=== PATIENT | female | born 1960 | race Caucasian/White ===

== ENCOUNTER 2021-07-23 23:06 | Inpatient (IN) | payer MEDICAID ==
[~2021-07-23] VITALS: Ht 160 cm; Wt 41.6 kg
[~2021-07-23 23:06] MED LIST: NOREPINEPHRINE BITARTRATE/D5W 8 MG/250mL bag IV ONE; adenosine 3mg/ml 2ml vial IV ONE; amiodarone 50MG/ML inj IV ONE; epiNEPHrine 0.1mg/ml 10ml syringe ONE; etomidate 2mg/ml inj. ONE
[2021-07-23] MEDS ORDERED: ringers solution, lactated 1000ml IV soln IV ONE (23:20)
[2021-07-24] VITALS (21 sets, daily range): BP systolic 89–153; BP diastolic 50–83
[2021-07-24 00:02] LABS: EOSINOPHILS % (AUTO) 0.2 % (0-6); LYMPHOCYTES # (AUTO) 0.6 X10'3 (1.1-4.8); MONOCYTES # (AUTO) 0.5 X10'3 (0-0.9); RED CELL DISTRIBUTION WIDTH 14.9 % (11.5-14.5)
[2021-07-24 00:04] LABS: BASOPHILS % (AUTO) 0.4 % (0-1); HEMATOCRIT 46.7 % (35.0-45.0); HEMOGLOBIN 15.5 g/dl (12.0-16.0); LYMPHOCYTES % (AUTO) 10.4 % (21-51); MEAN CORPUSCULAR HEMOGLOBIN 31.3 PG (27.0-31.0); MEAN CORPUSCULAR HGB CONC 33.1 g/dL (33.0-36.5); MEAN CORPUSCULAR VOLUME 94.4 FL (78-98); MEAN PLATELET VOLUME 7.7 FL (7.4-10.4); MONOCYTES % (AUTO) 8.9 % (2-12); NEUTROPHILS # (AUTO) 4.3 X10'3 (1.8-7.7); NEUTROPHILS % (AUTO) 80.1 % (42-75); PLATELET COUNT 241 X10'3 (140-440); RED BLOOD COUNT 4.94 X10'6 (4.20-5.60); WHITE BLOOD COUNT 5.4 X10'3 (4.5-11.0)
[2021-07-24 00:15] LABS: ALANINE AMINOTRANSFERASE 208 U/L (12-78); ALBUMIN 2.4 G/DL (3.4-5.0); ALBUMIN/GLOBULIN RATIO 0.5 (1.1-1.5); ALKALINE PHOSPHATASE 205 IU/L (46-116); ANION GAP 9 (8-16); ASPARTATE AMINO TRANSFERASE 261 U/L (10-37); BILIRUBIN,TOTAL 1.2 MG/DL (0.1-1.0); BLOOD UREA NITROGEN 23 MG/DL (7-18); BUN/CREATININE RATIO 25.6 (6.6-38.0); CALCIUM 8.2 MG/DL (8.5-10.1); CHLORIDE 100 MMOL/L (99-107); GLUCOSE 76 MG/DL (70-104); POTASSIUM 4.7 MMOL/L (3.5-5.1); SODIUM 138 MMOL/L (135-145); TOTAL CARBON DIOXIDE 28.8 MMOL/L (24-32); TOTAL PROTEIN 6.8 G/DL (6.4-8.2); eGFR 63 ML/MIN
[2021-07-24 00:21] LABS: LIPASE 84 U/L (73-393); MAGNESIUM 1.5 MG/DL (1.5-2.4)
[2021-07-24] MEDS ORDERED: CefTRIAXone 2gm/D5W 50ml BAG 50 ML IV ONE (01:00)
[2021-07-24 01:05] LABS: NUCLEATED RED BLOOD CELLS 2 /100WBC (0-0); TOTAL CELLS COUNTED 100
[2021-07-24 01:08] LABS: LARGE PLATELETS FEW; PLATELET ESTIMATE NORMAL; POIKILOCYTOSIS FEW; TEAR DROP CELLS FEW
[2021-07-24 01:09] LABS: ELLIPTOCYTES FEW
[2021-07-24] MEDS ORDERED: iohexol 300mg/ml 100ml inj. ONE (01:23)
[2021-07-24] MEDS ORDERED: morphine 2 MG/ML inj. syringe IV ONE (01:40)
[2021-07-24] MEDS ORDERED: ondansetron/PF 4mg/2ml inj IV ONE (01:40)
[2021-07-24] MEDS ORDERED: normal saline 1000ML IV soln IVB ONE (01:40)
[2021-07-24] MEDS ORDERED: rocuronium 10mg/ml inj IV ONE ×2 (01:55→05:17)
[2021-07-24] MEDS ORDERED: propofol 1000mg/100ml bottle 100 ML IV PRN (01:55)
[2021-07-24] MEDS ORDERED: etomidate 2mg/ml inj. IV ONE (01:55)
[2021-07-24] MEDS ORDERED: fentaNYL/PF 50MCG/1 ML 2ML syringe IV ONE ×2 (02:45→02:50)
[2021-07-24 02:59] LABS: ABG BASE EXCESS -4.2 mmol/L (-2.0-2.0); ABG HCO3 21.7 mmol/L (22.0-26.0); ABG OXYGEN SATURATION 99.8 % (94-97); ABG PCO2 (T) 42.7 mmHg (32.0-45.0); ABG PO2 (T) 448.7 mmHg (75.0-100.0); FCOHb 0.7 % (0.0-3.9); FMetHb 0.3 % (0.0-1.5); FO2Hb 98.8 % (94-97); PEEP 5 cm H2O; RESPIRATORY RATE 16 b/min; TIDAL VOLUME 350 mL
[2021-07-24] MEDS ORDERED: NOREPINEPHRINE BITARTRATE/D5W 250 ML IV PRN (03:30)
--- NOTE | 2021-07-24 03:30 | NUR ---
dr chery attempted to place thoravent, did not work and d/c. placed 24french chest tube.
--- NOTE | 2021-07-24 03:31 | NUR ---
placed petroleum gauze taped on 3 sides over prior thoravent attempt.
[2021-07-24] MEDS ORDERED: NORepinephrine 8mg/ 250ml NS 250 ML IV PRN (03:35)
[2021-07-24] MEDS ORDERED: ketamine 50 mg/ml 10ml vial ONE (03:45)
[2021-07-24] MEDS ORDERED: vancomycin/NS 1 GM ADD-VANTAGE 250 ML IV ONE (04:00)
[2021-07-24] MEDS ORDERED: FENTANYL CITRATE/D5W/PF 100 ML ONE (04:06)
[2021-07-24] MEDS ORDERED: FENTANYL CITRATE/D5W/PF 100 ML IV SCH (04:10)
[2021-07-24] MEDS ORDERED: epiNEPHrine inj 5 MG in normal saline 250ml IV soln 245 ML IV SCH (04:30)
[2021-07-24] MEDS ORDERED: albuterol 2.5 MG/3 ML nebule NEB PRN (04:35)
[2021-07-24] MEDS ORDERED: diltiazem 5mg/ml 5ml inj. IV ONE (04:56)
--- NOTE | 2021-07-24 04:59 | NUR ---
AT 0448 PT GIVEN 6 MG OF ADENOSINE. NO CHANGE AT 0454 PT GIVEN 12 MG OF ADENOSINE. NO CHANGE 0450 SYNCHRONIZED CARDIOVERSION WITH 150J. PT CARDIOVERTED TO SINUS RHYTHM.
--- NOTE | 2021-07-24 05:00 | NUR ---
PT GIVEN 150 OF AMIODARONE
--- NOTE | 2021-07-24 05:04 | NUR ---
0.[address] MOTT
[2021-07-24] MEDS ORDERED: ondansetron/PF 4mg/2ml inj IV PRN (05:10)
[2021-07-24] MEDS ORDERED: ringers solution, lacted 1,000 ML IV SCH (05:10)
[2021-07-24] MEDS ORDERED: fentaNYL/PF 50MCG/1 ML 2ML syringe ONE (05:16)
[2021-07-24] MEDS ORDERED: midazolam 1 mg/ML 2ml injection ONE (05:17)
[2021-07-24] MEDS ORDERED: sevoflurane 250ml liquid IH ONE (06:03)
--- NOTE | 2021-07-24 06:12 | NUR ---
charting limited to acuity of pt and staffing. er md at bedside giving verbal orders.
[2021-07-24] MEDS ORDERED: ketamine 10mg/ml 20ml inj vial IV ONE (06:15)
[2021-07-24] MEDS ORDERED: calcium chloride 100 MG/1 ML inj IV ONE (06:15)
[2021-07-24 06:35] LABS: URINE HCG NEGATIVE (NEG)
[2021-07-24 06:37] LABS: CLARITY,URINE SLIGHTLY CLOUDY (Clear); COLOR,URINE YELLOW (Yellow); GLUCOSE, URINE NEGATIVE (Neg); KETONES,URINE NEGATIVE (Neg); LEUKOCYTE ESTERASE ,URINE NEGATIVE (Neg); NITRITES, URINE NEGATIVE (Neg); OCCULT BLOOD,URINE NEGATIVE (Neg); PROTEIN,URINE TRACE mg/dl (Neg); UROBILINOGEN,URINE 0.2 E.U/dL (0.2-1.0)
[2021-07-24] MEDS ORDERED: dexamethasone sod phosphate 4mg/ml inj. ONE (06:37)
[2021-07-24 06:40] LABS: UA COLLECTION TYPE FOLEY CATH
[2021-07-24 06:47] LABS: BACTERIA,URINE FEW /HPF (Neg); MUCUS STRANDS NONE SEEN /LPF (Neg); RBC,URINE 0-2 /HPF (0-2); SQUAMOUS EPITHELIAL CELL,UR FEW /LPF (FEW); WBC CLUMPS,URINE FEW /HPF (NEGATIVE)
[2021-07-24 06:48] LABS: RENAL CELLS, URINE FEW /HPF
--- NOTE | 2021-07-24 07:00 | NUR ---
Received from OR via , accompanied by Anesthesiologist and report given by Anesthesiolgist. PATIENT HAS CHEST TUBE TO RIGHT UPPER CHEST WITH 60CC IN DRAIN TO 20CM OF SUCTION WITH NO LEAKS DETECTED, SHANAE TO RIGHT ABDOMEN APPROX 15CC IN BULB, RIGHT UPPER CHEST DRESSING, ABG DRAWN, RESTRAINTS ON BUE DUE TO ET TUBE VENT. ET AT 18CM GUM SEE RT NOTES, SEDATION BEING USED AND TITRATED FOR COMFORT DUE TO VENT. LEVOPHED TITRATED FOR B/P PER MD ORDERS. V/S STABLE. NO S/S OF PAIN. MOTTLED EXTREMITIES PULSE OX SHOWING 98% UN PALPABLE BLE, WILL TRY DOPPLER MD MINOR AWARE OF POOR EXTREMITY PERFUSION. F/C DRAINING CLEAR YELLOW URINE. ARTLINE TO RIGHT GROIN AND CL TO RIGHT GROIN, 22G RUE.
[2021-07-24 07:08] LABS: ABG BASE EXCESS -5.2 mmol/L (-2.0-2.0); ABG HCO3 17.8 mmol/L (22.0-26.0); ABG OXYGEN SATURATION 99.8 % (94-97); ABG PCO2 (T) 26.7 mmHg (32.0-45.0); ABG PO2 (T) 476.2 mmHg (75.0-100.0); FCOHb 0.3 % (0.0-3.9); FMetHb 0.5 % (0.0-1.5); PATIENT TEMPERATURE 36.2; PEEP 5 cm H2O; RESPIRATORY RATE 18 b/min; TIDAL VOLUME 350 mL; TOTAL HEMOGLOBIN 12.3 G/dl (12.0-16.0)
--- NOTE | 2021-07-24 08:10 | NUR ---
PATIENT HAS CHEST TUBE TO RIGHT UPPER CHEST WITH 60CC IN DRAIN TO 20CM OF SUCTION WITH NO LEAKS DETECTED, SHANAE TO RIGHT ABDOMEN APPROX 15CC IN BULB, RIGHT UPPER CHEST DRESSING, ABG DRAWN, RESTRAINTS ON BUE DUE TO ET TUBE VENT. ET AT 18CM GUM SEE RT NOTES, SEDATION BEING USED AND TITRATED FOR COMFORT DUE TO VENT. LEVOPHED TITRATED .2MCG/KG/MIN FOR B/P PER MD ORDERS. V/S STABLE. NO S/S OF PAIN. MOTTLED EXTREMITIES PULSE OX SHOWING 98% UNPALPABLE BLE, MILY AWARE OF POOR EXTREMITY PERFUSION, MOTTLED TO RLE BUT COLOR IMPROVING SLIGHTLY AND EVEN LESS MOTTLING TO LLE, STILL UNABLE TO GET DOPPLAR PULSE BLE MD MINOR. F/C DRAINING CLEAR YELLOW URINE. ARTLINE TO RIGHT GROIN AND CL TO RIGHT GROIN, 22G RUE. PATIENT PUPILS SLIGHTLY UNEQUAL WHICH PRIOR TO SURGERY DOCUMENTATION REVEALED THEY WERE EQUAL FOR ER REPORT. BUSINESS ANALYST CONSULTANT TO BE PAGED FOR THIS AND ADMIT ORDERS. ORDERS TO ADMIT AND TRANSFER FROM DR RICHARD UNTIL BUSINESS ANALYST CONSULTANT CAN EVALUATE. V/S STABLE HOOKED UP TO MONITORS IN ICU RM AND REPORT GIVEN TO BEST WORKER WHO HAS TAKEN OVER PATIENT CARE.
--- NOTE | 2021-07-24 09:00 | NUR ---
Patient to room 2045 from OR via [facility] with x2 RNs. Patient transferred to ICU bed with x4 RNs. Patient Vital sings stable at time of transfer. Levophed on at 0.2 mcg/kg/min, Versed at 3 mg/hr, and Fentanyl at 35 mcg/hr. Patient was noted to have right pupil size at 1 and left pupil size at 4 and unreactive to light. This appears to be a new finding. Md notified. Right foot without pulse, purple and cold, this is not a new finding.
--- NOTE | 2021-07-24 09:00 | NUR ---
Chest tube with air leak, this is consistent with OR report
[2021-07-24] MEDS: epiNEPHrine inj 5 MG in normal saline 250ml IV soln 245 ML IV SCH ×4 (10:15→20:15)
[2021-07-24] MEDS: pantoprazole IV 40 MG in dextrose 5%-water 100 ML IV SCH ×4 (11:00→21:37)
[2021-07-24] MEDS: enoxaparin 30mg/0.3ml syringe SQ SCH ×2 (11:36→20:38)
--- NOTE | 2021-07-24 11:48 | NUR ---
Initial: Pt intubated s/p ex lap for perforated gastric ulcer repair remains NPO at this time. OG in place w/ MAP 75 this AM. Pt notably small stature w/ visible muscle/fat wasting to temporal, clavicular, deltoid, triceps, and bilateral legs present during RD visit. Given above pt meets severe malnutrition criteria; notified. TF recs below in case prolonged intubation using IBW as pending scaled wt this admit. Will continue to monitor for nutrition support needs on vent. Rec: 1. IF TF; Vital AF at 50ml/hr goal would provide 1200ml volume/day, 1440 kcals, 972ml water, and 90g protein. 2. IF TF; additional water flush 100ml Q4H 3. IF TF; PALB Q /; daily wts 4. bowel care per rx post-op 5. upon extubation; advance diet per PLISSE MACHINE OPERATOR HELPER/ recs to regular Addendum: 07/24/21 at [address] Amended: Links added.
[2021-07-24] MEDS: piperacillin/tazo 3.375gm/50ml 50 ML IV SCH ×2 (12:02→16:15)
[2021-07-24] MEDS ORDERED: normal saline 1000ml 1,000 ML IVB ONE (15:10)
--- NOTE | 2021-07-24 15:56 | NUR ---
Patient's belongings were all placed in the bottom drawer of the cart in patient's room with a patient instrumentation chemist them. Belongings are as follows: Robe, jacket, flannel, tank top, pants, socks, underwear, sandles, small black pouch with small note in it, x2 pairs of glasses, x3 rings removed from patient and placed in a cup and lid with her name on it, cell phone, utility tech, purse with wallet, cards, keys and several papers.
[2021-07-24] MEDS: normal saline 1000ml 1,000 ML IV SCH ×3 (16:14→23:41)
--- NOTE | 2021-07-24 17:35 | NUR ---
Patient's boyfriend Allen and friend Lefty came to see the patient for a few minutes. They opted to take the black pouch, cell phone, and school year nanny but left the rest of the belongings. They also brought her a deck of cards and a black juliette pack with lotto scratchers in it. Addendum: 07/24/21 at 1832 by Alexandra Gauthier RN Discussed with patient's boyfriend the seriousness of patient's condition, his shrugged in response and said what happens, happens
--- NOTE | 2021-07-24 18:15 | NUR ---
Patient in room ICU 2045. I have received report from RAMO Morris and had the opportunity to ask questions and assume patient care. Patient is intubated and sedated with versed and fentanyl infusing to right femoral central line. Right chest tube to suction with large air leak present. This is not a new finding per report - MD is aware. Patient with J/P drain present. Patients extremities are purple and mottled - per report MD is aware. Pupils are unequal and non reactive Right pupil at 1mm, Left pupil at 3mm.
[2021-07-24] MEDS: FENTANYL-0.9 % NACL/PF 100 ML IV PRN (22:03)
[2021-07-25] VITALS (24 sets, daily range): BP systolic 87–125; BP diastolic 47–71
[2021-07-25] MEDS: piperacillin/tazo 3.375gm/50ml 50 ML IV SCH ×3 (00:35→17:00)
--- NOTE | 2021-07-25 00:45 | NUR ---
Admission Assessment completed with information from chart, unable to complete fully secondary to patient being intubated and sedated.
[2021-07-25] MEDS: epiNEPHrine inj 5 MG in normal saline 250ml IV soln 245 ML IV SCH ×2 (01:15→05:21)
--- NOTE | 2021-07-25 01:52 | NUR ---
Patient with weak gag/ cough with ET tube suction. Patient not following commands, does not respond to painful stimuli. Patient will intermittently furrow her brow with oral care and repositioning. Pupils maintain to be unequal and non reactive. Mottling to hands, feet and knees present.
[2021-07-25 03:01] LABS: BASOPHILS % (AUTO) 0.1 % (0-1); EOSINOPHILS % (AUTO) 0 % (0-6); HEMATOCRIT 32.4 % (35.0-45.0); HEMOGLOBIN 10.7 g/dl (12.0-16.0); LYMPHOCYTES # (AUTO) 0.6 X10'3 (1.1-4.8); LYMPHOCYTES % (AUTO) 6.1 % (21-51); MEAN CORPUSCULAR HEMOGLOBIN 30.9 PG (27.0-31.0); MEAN CORPUSCULAR HGB CONC 33.1 g/dL (33.0-36.5); MEAN CORPUSCULAR VOLUME 93.5 FL (78-98); MEAN PLATELET VOLUME 8.4 FL (7.4-10.4); MONOCYTES # (AUTO) 0.5 X10'3 (0-0.9); MONOCYTES % (AUTO) 4.6 % (2-12); NEUTROPHILS # (AUTO) 8.8 X10'3 (1.8-7.7); NEUTROPHILS % (AUTO) 89.2 % (42-75); PLATELET COUNT 98 X10'3 (140-440); RED BLOOD COUNT 3.46 X10'6 (4.20-5.60); RED CELL DISTRIBUTION WIDTH 14.8 % (11.5-14.5); WHITE BLOOD COUNT 9.8 X10'3 (4.5-11.0)
[2021-07-25 03:24] LABS: ALANINE AMINOTRANSFERASE 94 U/L (12-78); ALBUMIN 1.7 G/DL (3.4-5.0); ALBUMIN/GLOBULIN RATIO 0.7 (1.1-1.5); ALKALINE PHOSPHATASE 85 IU/L (46-116); ANION GAP 12 (8-16); ASPARTATE AMINO TRANSFERASE 116 U/L (10-37); BILIRUBIN,TOTAL 2.3 MG/DL (0.1-1.0); BLOOD UREA NITROGEN 34 MG/DL (7-18); BUN/CREATININE RATIO 26.2 (6.6-38.0); CALCIUM 7.2 MG/DL (8.5-10.1); CHLORIDE 108 MMOL/L (99-107); GLUCOSE 138 MG/DL (70-104); POTASSIUM 4.1 MMOL/L (3.5-5.1); SODIUM 138 MMOL/L (135-145); TOTAL CARBON DIOXIDE 17.9 MMOL/L (24-32); TOTAL PROTEIN 4.3 G/DL (6.4-8.2); TRIGLYCERIDES 46 MG/DL (20-135); eGFR 42 ML/MIN
[2021-07-25] MEDS: midazolam 100mg in NS 100ml 100 ML IV PRN (03:38)
[2021-07-25] MEDS: pantoprazole IV 40 MG in dextrose 5%-water 100 ML IV SCH ×5 (03:38→21:17)
[2021-07-25 03:46] LABS: ABG BASE EXCESS -5.6 mmol/L (-2.0-2.0); ABG HCO3 16.2 mmol/L (22.0-26.0); ABG OXYGEN SATURATION 99.5 % (94-97); ABG PCO2 (T) 21.2 mmHg (32.0-45.0); ABG PO2 (T) 237.8 mmHg (75.0-100.0); FCOHb 0.3 % (0.0-3.9); FMetHb 0.3 % (0.0-1.5); FO2Hb 98.9 % (94-97); PATIENT TEMPERATURE 36.1; PEEP 5 cm H2O; RESPIRATORY RATE 18 b/min; TIDAL VOLUME 350 mL
[2021-07-25] MEDS ORDERED: ringers solution, lacted 1,000 ML IV ONE (05:05)
[2021-07-25] MEDS ORDERED: calcium chloride inj. 2,000 MG in normal saline 100ml IV soln 100 ML IV SCH (05:05)
[2021-07-25] MEDS ORDERED: calcium chloride inj. 2,000 MG in normal saline 100ml IV soln 100 ML IV ONE (05:09)
--- NOTE | 2021-07-25 06:00 | NUR ---
Patient in room CICU 2014. I have received report from Gogo RALPH and had the opportunity to ask questions and assume patient care.
--- NOTE | 2021-07-25 06:09 | NUR ---
LATE ENTRY: 0330 PATENT MOVED TO ROOM 2015. Patient with decrease in blood Pressure and temp. Core temp placed. warm blankets applied to patient. Rounds with Dr. Davis addressed mottled skin, lack of pluses, scant urine output. AM labs reviewed, changes to platelets and hgb noted. Dr. Davis to place orders.
--- NOTE | 2021-07-25 06:43 | NUR ---
Problems reprioritized. Patient report given, questions answered & plan of care reviewed with RAMO Galarza.
--- NOTE | 2021-07-25 07:00 | NUR ---
Renu hugger applied to pt for low temperature, pts feet and hands are discolored purple, with prolonged capillary refill, posterior tibial pulses by doppler only on the right. pts tongue is very dry and ET tube appears to be at a different location than given in report. Will wait for chest x-ray. Moderate amount of subq air noted in right upper chest and neck. Right chest tube shows large air leak with minimum drainage output. Pt furrows brow when suctioned but no other response noted. mild cough noted pupils remain unequal, corneal reflex present.
[2021-07-25] MEDS ORDERED: UNABLE TO OBTAIN (11:20)
[2021-07-25] MEDS: enoxaparin 30mg/0.3ml syringe SQ SCH ×2 (11:56→22:13)
--- NOTE | 2021-07-25 13:56 | NUR ---
TPN consult: Pt remains intubated, to begin TPN per MD. Per scrap charger pt with a central line. TPN recommendations below have been d/w clinical pharmacist. Estimated nutrient needs were calculated using IBW as current documented wt isn't scaled. TPN recommendations will meet 100% minimum estimated energy needs at max appropriate dextrose load for intubation, although current documented wt isn't scaled so dext load may not be accurate. Will update recommendations as appropriate once a scaled weight is obtained. Noted pt with a low Tyrese of 11. SHANAE drain in place otherwise no edema or wounds per physical assessment. Will continue to follow and make recommendations as appropriate. Recommendations: 1. Continuous TPN per MD using 2:1 Climimix-E 12/27 with goal rate of 69 mL/hr with additional 250 mL 20% intralipids to run at 20.83 mL/hr for 12 hours on Tuesdays and Fridays. To provide 1656 mL total volume/day, 83 g AA, 248 g dext (5.06 mg/kg/min dext load, though current wt isn't scaled), and average 1318 kcal/day 2. Monitor for scaled weight and adjust recommendations as appropriate 3. Prealbumin and TG q Tuesday/ 4. Daily scaled weights 5. Transition to TF as medically indicated; IF TF, continuous Vital AF with 50 ml/hr goal to provide 1200 ml volume/day, 1440 kcal, 972 ml water, and 90 g protein. 6. IF TF; additional 100 mL water flush Q4H; monitor serum Na 7. Bowel care per rx post-op 8. Upon extubation, advance diet per ST/ recs to regular as medically indicated Addendum: 07/25/21 at [address] Amended: Links added.
[2021-07-25] MEDS ORDERED: atropine 0.1mg/ml 10ml syringe ONE (14:27)
[2021-07-25] MEDS ORDERED: Dextrose 10%-water IV solution 1,000 ML IV PRN (15:00)
[2021-07-25] MEDS: FENTANYL-0.9 % NACL/PF 100 ML IV PRN (16:59)
[2021-07-25] MEDS: normal saline 1000ml 1,000 ML IV SCH ×2 (17:00→23:10)
[2021-07-25] MEDS ORDERED: ZINC/COPPER/MANGANESE/SELENIUM 1 ML, chromic chloride inj. 10 MCG in AA 5%/D15W/ELECTRO... IV SCH (20:00)
--- NOTE | 2021-07-25 20:55 | NUR ---
Dr. Moser called for direction on Lovenox dose tonight. Patients Platelet count 98 Hemoglobin 10.7 after last nights Lovenox. MD will order redraw on CBC. Hold Lovenox until we have new labs values back.
[2021-07-25 21:35] LABS: BASOPHILS % (AUTO) 0.1 % (0-1); EOSINOPHILS % (AUTO) 0 % (0-6); HEMATOCRIT 28.9 % (35.0-45.0); HEMOGLOBIN 9.6 g/dl (12.0-16.0); LYMPHOCYTES # (AUTO) 0.6 X10'3 (1.1-4.8); LYMPHOCYTES % (AUTO) 3.8 % (21-51); MEAN CORPUSCULAR HEMOGLOBIN 30.8 PG (27.0-31.0); MEAN CORPUSCULAR HGB CONC 33.1 g/dL (33.0-36.5); MEAN CORPUSCULAR VOLUME 93.2 FL (78-98); MEAN PLATELET VOLUME 8.4 FL (7.4-10.4); MONOCYTES # (AUTO) 0.7 X10'3 (0-0.9); MONOCYTES % (AUTO) 4.5 % (2-12); NEUTROPHILS # (AUTO) 13.6 X10'3 (1.8-7.7); NEUTROPHILS % (AUTO) 91.6 % (42-75); PLATELET COUNT 122 X10'3 (140-440); RED CELL DISTRIBUTION WIDTH 15.6 % (11.5-14.5); WHITE BLOOD COUNT 14.9 X10'3 (4.5-11.0)
[2021-07-25 21:39] LABS: ALBUMIN 1.4 G/DL (3.4-5.0); ANION GAP 10 (8-16); BLOOD UREA NITROGEN 40 MG/DL (7-18); BUN/CREATININE RATIO 26.5 (6.6-38.0); CALCIUM 8.4 MG/DL (8.5-10.1); CHLORIDE 109 MMOL/L (99-107); CREATININE 1.51 MG/DL (0.40-0.90); GLUCOSE 136 MG/DL (70-104); MAGNESIUM 1.3 MG/DL (1.5-2.4); PHOSPHORUS 3.5 MG/DL (2.3-4.5); POTASSIUM 4.3 MMOL/L (3.5-5.1); PREALBUMIN 5.1 MG/DL (19-36); SODIUM 138 MMOL/L (135-145); TOTAL CARBON DIOXIDE 19.3 MMOL/L (24-32); eGFR 35 ML/MIN
--- NOTE | 2021-07-25 22:07 | NUR ---
Dr. Moser called with current lab results, Hgb 9.6 Hct 28.9 Plt 122, Per MD marte to give dose of Lovenox tonight.
[2021-07-26] VITALS (24 sets, daily range): BP systolic 90–129; BP diastolic 55–74
[2021-07-26] MEDS: piperacillin/tazo 3.375gm/50ml 50 ML IV SCH ×3 (00:20→15:32)
[2021-07-26] MEDS: pantoprazole IV 40 MG in dextrose 5%-water 100 ML IV SCH ×3 (01:58→19:46)
[2021-07-26] MEDS ORDERED: MESSAGE TO PHARMACY PO ONE (03:40)
[2021-07-26 03:44] LABS: ABG BASE EXCESS -6.4 mmol/L (-2.0-2.0); ABG HCO3 16.9 mmol/L (22.0-26.0); ABG OXYGEN SATURATION 97.9 % (94-97); ABG PCO2 (T) 25.8 mmHg (32.0-45.0); ABG PO2 (T) 116.7 mmHg (75.0-100.0); FCOHb 0.3 % (0.0-3.9); FMetHb 0.1 % (0.0-1.5); FO2Hb 97.5 % (94-97); PATIENT TEMPERATURE 36.3; PEEP 5 cm H2O; RESPIRATORY RATE 16 b/min; TIDAL VOLUME 350 mL; TOTAL HEMOGLOBIN 10.3 G/dl (12.0-16.0)
[2021-07-26] MEDS ORDERED: dextrose ORAL solution 15 GM/59 ML bottle PO PRN ×2 (03:50)
[2021-07-26] MEDS ORDERED: glucagon, human recombinant 1mg kit SUBCUT PRN (03:50)
[2021-07-26 03:51] LABS: BASOPHILS % (AUTO) 0 % (0-1); EOSINOPHILS % (AUTO) 0 % (0-6); HEMATOCRIT 28.2 % (35.0-45.0); HEMOGLOBIN 9.4 g/dl (12.0-16.0); LYMPHOCYTES # (AUTO) 0.6 X10'3 (1.1-4.8); MEAN CORPUSCULAR HGB CONC 33.3 g/dL (33.0-36.5); MEAN CORPUSCULAR VOLUME 93.3 FL (78-98); MEAN PLATELET VOLUME 8.6 FL (7.4-10.4); MONOCYTES # (AUTO) 0.6 X10'3 (0-0.9); MONOCYTES % (AUTO) 4.1 % (2-12); NEUTROPHILS # (AUTO) 12.9 X10'3 (1.8-7.7); NEUTROPHILS % (AUTO) 91.9 % (42-75); PLATELET COUNT 118 X10'3 (140-440); RED BLOOD COUNT 3.02 X10'6 (4.20-5.60); RED CELL DISTRIBUTION WIDTH 15.8 % (11.5-14.5); WHITE BLOOD COUNT 14.1 X10'3 (4.5-11.0)
[2021-07-26] MEDS: normal saline 1000ml 1,000 ML IV SCH ×3 (03:58→22:23)
[2021-07-26 04:12] LABS: ALANINE AMINOTRANSFERASE 76 U/L (12-78); ALBUMIN 1.3 G/DL (3.4-5.0); ALBUMIN/GLOBULIN RATIO 0.4 (1.1-1.5); ALKALINE PHOSPHATASE 65 IU/L (46-116); ANION GAP 12 (8-16); ASPARTATE AMINO TRANSFERASE 84 U/L (10-37); BILIRUBIN,TOTAL 1.7 MG/DL (0.1-1.0); BLOOD UREA NITROGEN 42 MG/DL (7-18); CALCIUM 7.7 MG/DL (8.5-10.1); CHLORIDE 109 MMOL/L (99-107); GLUCOSE 223 MG/DL (70-104); MAGNESIUM 1.3 MG/DL (1.5-2.4); PHOSPHORUS 3.6 MG/DL (2.3-4.5); POTASSIUM 4.1 MMOL/L (3.5-5.1); SODIUM 138 MMOL/L (135-145); TOTAL CARBON DIOXIDE 17.4 MMOL/L (24-32); TOTAL PROTEIN 4.2 G/DL (6.4-8.2); eGFR 35 ML/MIN
--- NOTE | 2021-07-26 05:00 | NUR ---
Bear hugger warming blanket place back on patient after bed bath, patient with decreased temp.
[2021-07-26] MEDS ORDERED: magnesium 2GM in 50ml NS 50 ML IV ONE (05:30)
--- NOTE | 2021-07-26 06:30 | NUR ---
Problems reprioritized. Patient report given, questions answered & plan of care reviewed with RAMO Ambriz.
[2021-07-26] MEDS: enoxaparin 30mg/0.3ml syringe SQ SCH ×2 (08:12→19:47)
[2021-07-26] MEDS: insulin regular, human U-100 3ml vial - multi-dose SQ SCH ×3 (09:16→20:12)
[2021-07-26 11:30] LABS: HEMOGLOBIN A1C 5.9 % (4.5-6.2)
--- NOTE | 2021-07-26 18:30 | NUR ---
Patient in room CICU 2014. I have received report from RAMO Ambriz and had the opportunity to ask questions and assume patient care.
[2021-07-26] MEDS: ZINC/COPPER/MANGANESE/SELENIUM 1 ML, chromic chloride inj. 10 MCG in AA 5%/D15W/ELECTRO... IV SCH (19:46)
[2021-07-26] MEDS: insulin glargine (Lantus) pen - multi-dose SQ SCH (20:13)
[2021-07-27] VITALS (24 sets, daily range): BP systolic 97–193; BP diastolic 53–90
[2021-07-27] MEDS: piperacillin/tazo 3.375gm/50ml 50 ML IV SCH ×3 (00:28→15:55)
--- NOTE | 2021-07-27 00:48 | NUR ---
Patient opens eyes but does not track, Patient moves lower extremities spontaneously. Patient does not follow commands to squeeze hands. Patient with increased heart rate and blood pressure to 210/ 120. Sedation and pain management medications increased and bolus administered per policy and order. Patient with decreased agitation with blood pressure returning within normal limits.
[2021-07-27] MEDS: insulin regular, human U-100 3ml vial - multi-dose SQ SCH ×4 (02:23→20:26)
[2021-07-27 02:59] LABS: BASOPHILS % (AUTO) 0.1 % (0-1); EOSINOPHILS % (AUTO) 0 % (0-6); MEAN CORPUSCULAR HEMOGLOBIN 30.7 PG (27.0-31.0); MEAN PLATELET VOLUME 8.6 FL (7.4-10.4); MONOCYTES # (AUTO) 0.7 X10'3 (0-0.9)
[2021-07-27 03:02] LABS: HEMATOCRIT 30.3 % (35.0-45.0); HEMOGLOBIN 9.8 g/dl (12.0-16.0); LYMPHOCYTES # (AUTO) 0.4 X10'3 (1.1-4.8); LYMPHOCYTES % (AUTO) 2.4 % (21-51); MEAN CORPUSCULAR HGB CONC 32.4 g/dL (33.0-36.5); MEAN CORPUSCULAR VOLUME 94.9 FL (78-98); MONOCYTES % (AUTO) 4.4 % (2-12); NEUTROPHILS # (AUTO) 14.7 X10'3 (1.8-7.7); NEUTROPHILS % (AUTO) 93.1 % (42-75); PLATELET COUNT 144 X10'3 (140-440); RED CELL DISTRIBUTION WIDTH 16.1 % (11.5-14.5); WHITE BLOOD COUNT 15.8 X10'3 (4.5-11.0)
[2021-07-27 03:06] LABS: ABG HCO3 13.8 mmol/L (22.0-26.0); ABG OXYGEN SATURATION 95.9 % (94-97); ABG PCO2 (T) 29.7 mmHg (32.0-45.0); ABG PO2 (T) 87.6 mmHg (75.0-100.0); FCOHb 0.3 % (0.0-3.9); FO2Hb 95.6 % (94-97); PATIENT TEMPERATURE 35.9; PEEP 5 cm H2O; RESPIRATORY RATE 16 b/min; TIDAL VOLUME 350 mL; TOTAL HEMOGLOBIN 10.1 G/dl (12.0-16.0)
[2021-07-27 03:50] LABS: ALANINE AMINOTRANSFERASE 76 U/L (12-78); ALBUMIN 1.3 G/DL (3.4-5.0); ALBUMIN/GLOBULIN RATIO 0.4 (1.1-1.5); ALKALINE PHOSPHATASE 62 IU/L (46-116); ANION GAP 11 (8-16); ASPARTATE AMINO TRANSFERASE 77 U/L (10-37); BILIRUBIN,TOTAL 1.3 MG/DL (0.1-1.0); BLOOD UREA NITROGEN 49 MG/DL (7-18); BUN/CREATININE RATIO 35.3 (6.6-38.0); CALCIUM 7.4 MG/DL (8.5-10.1); CHLORIDE 109 MMOL/L (99-107); CREATININE 1.39 MG/DL (0.40-0.90); GLUCOSE 260 MG/DL (70-104); MAGNESIUM 1.9 MG/DL (1.5-2.4); PHOSPHORUS 3.3 MG/DL (2.3-4.5); POTASSIUM 3.9 MMOL/L (3.5-5.1); PREALBUMIN 6.6 MG/DL (19-36); SODIUM 136 MMOL/L (135-145); TOTAL CARBON DIOXIDE 16.4 MMOL/L (24-32); TOTAL PROTEIN 4.5 G/DL (6.4-8.2); eGFR 38 ML/MIN
--- NOTE | 2021-07-27 06:24 | NUR ---
Problems reprioritized. Patient report given, questions answered & plan of care reviewed with RAMO Ambriz.
[2021-07-27] MEDS: sodium bicarbonate (8.4%) inj. 150 MEQ in dextrose 5%-water 1,000 ML IV SCH (07:36)
[2021-07-27] MEDS: enoxaparin 40mg/0.4ml syringe SQ SCH ×2 (07:37→20:10)
[2021-07-27] MEDS: pantoprazole IV 40 MG in dextrose 5%-water 100 ML IV SCH ×2 (07:37→20:08)
[2021-07-27] MEDS: folic acid 1mg/0.2ml inj IV SCH (12:55)
[2021-07-27] MEDS: thiamine inj. 100 MG in normal saline 100ml IV soln 100 ML IV SCH (12:55)
--- NOTE | 2021-07-27 18:20 | NUR ---
Patient in room CICU 2014. I have received report from RAMO Ambriz and had the opportunity to ask questions and assume patient care. Patient with increased/ large amount of subcutaneous emphysema to right anterior chest extending down right arm, up to right clavicle and across to left chest. Patient with chest tube in place to suction with positive air leak, not a new finding. SpO2 94% rate 16 A/C PRVC on ventilator with FiO2 30%, PEEP of 5. Lung sounds clear and diminished to right lung, left lung is clear. Chest x-ray is pending. Patient intermittently opens eyes to verbal and patient care activities, patient is not following commands. Patient does not track with eyes.
--- NOTE | 2021-07-27 19:21 | NUR ---
Dr. Garces called with results of chest x-ray and to update on patients condition. Patient with increased subcutaneous emphysema to right anterior chest, extending across to the left and down right arm. Ventilator settings reviewed. MD order to increase suction on chest tube atrium to [id number].
[2021-07-27] MEDS: ZINC/COPPER/MANGANESE/SELENIUM 1 ML, chromic chloride inj. 10 MCG in AA 5%/D15W/ELECTRO... IV SCH (20:09)
[2021-07-27] MEDS: lactobacillus rhamnosus 10,000 MMU CELLS/CAPSULE PO SCH (20:09)
[2021-07-27] MEDS: insulin glargine (Lantus) pen - multi-dose SQ SCH (20:27)
[2021-07-28] VITALS (23 sets, daily range): BP systolic 82–153; BP diastolic 44–76
[2021-07-28] MEDS: piperacillin/tazo 3.375gm/50ml 50 ML IV SCH ×3 (00:15→15:43)
[2021-07-28] MEDS: FENTANYL-0.9 % NACL/PF 100 ML IV PRN (00:33)
[2021-07-28] MEDS: mineral oil/petrolatum ophthal oint EACHEYE SCH ×4 (02:23→20:00)
[2021-07-28] MEDS: insulin regular, human U-100 3ml vial - multi-dose SQ SCH ×2 (02:43→20:44)
[2021-07-28] MEDS: sodium bicarbonate (8.4%) inj. 150 MEQ in dextrose 5%-water 1,000 ML IV SCH (02:50)
[2021-07-28 03:10] LABS: BASOPHILS # (AUTO) 0.1 X10'3 (0-0.2); BASOPHILS % (AUTO) 0.4 % (0-1); EOSINOPHILS % (AUTO) 0.1 % (0-6); HEMATOCRIT 29.9 % (35.0-45.0); HEMOGLOBIN 9.7 g/dl (12.0-16.0); LYMPHOCYTES # (AUTO) 0.3 X10'3 (1.1-4.8); LYMPHOCYTES % (AUTO) 2.3 % (21-51); MEAN CORPUSCULAR HEMOGLOBIN 30.4 PG (27.0-31.0); MEAN CORPUSCULAR HGB CONC 32.6 g/dL (33.0-36.5); MEAN CORPUSCULAR VOLUME 93.5 FL (78-98); MEAN PLATELET VOLUME 8.6 FL (7.4-10.4); MONOCYTES # (AUTO) 0.8 X10'3 (0-0.9); MONOCYTES % (AUTO) 7.2 % (2-12); NEUTROPHILS # (AUTO) 10.5 X10'3 (1.8-7.7); PLATELET COUNT 136 X10'3 (140-440); RED BLOOD COUNT 3.19 X10'6 (4.20-5.60); RED CELL DISTRIBUTION WIDTH 15.7 % (11.5-14.5); WHITE BLOOD COUNT 11.7 X10'3 (4.5-11.0)
[2021-07-28 03:36] LABS: ABG BASE EXCESS -3.2 mmol/L (-2.0-2.0); ABG HCO3 21.8 mmol/L (22.0-26.0); ABG OXYGEN SATURATION 96.3 % (94-97); ABG PCO2 (T) 39.2 mmHg (32.0-45.0); ABG PO2 (T) 87.3 mmHg (75.0-100.0); FCOHb 0.3 % (0.0-3.9); FMetHb 0.1 % (0.0-1.5); FO2Hb 95.9 % (94-97); PATIENT TEMPERATURE 37.1; PEEP 5 cm H2O; RESPIRATORY RATE 16 b/min; TIDAL VOLUME 350 mL; TOTAL HEMOGLOBIN 10.8 G/dl (12.0-16.0)
[2021-07-28 03:39] LABS: ALANINE AMINOTRANSFERASE 67 U/L (12-78); ALBUMIN 1.1 G/DL (3.4-5.0); ALBUMIN/GLOBULIN RATIO 0.3 (1.1-1.5); ALKALINE PHOSPHATASE 68 IU/L (46-116); ANION GAP 7 (8-16); ASPARTATE AMINO TRANSFERASE 81 U/L (10-37); BILIRUBIN,TOTAL 1.1 MG/DL (0.1-1.0); BLOOD UREA NITROGEN 49 MG/DL (7-18); BUN/CREATININE RATIO 44.5 (6.6-38.0); CALCIUM 7.3 MG/DL (8.5-10.1); CHLORIDE 106 MMOL/L (99-107); GLUCOSE 129 MG/DL (70-104); MAGNESIUM 1.7 MG/DL (1.5-2.4); PHOSPHORUS 2.3 MG/DL (2.3-4.5); SODIUM 137 MMOL/L (135-145); TOTAL CARBON DIOXIDE 23.9 MMOL/L (24-32); TOTAL PROTEIN 4.4 G/DL (6.4-8.2); eGFR 50 ML/MIN
[2021-07-28 03:43] LABS: POTASSIUM 2.9 MMOL/L (3.5-5.1)
[2021-07-28] MEDS: potassium Cl 20 mEq/100mL bag IV SCH ×3 (04:31→06:30)
--- NOTE | 2021-07-28 06:11 | NUR ---
Problems reprioritized. Patient report given, questions answered & plan of care reviewed with RAMO Ambriz.
[2021-07-28] MEDS: thiamine inj. 100 MG in normal saline 100ml IV soln 100 ML IV SCH (07:50)
[2021-07-28] MEDS: pantoprazole IV 40 MG in dextrose 5%-water 100 ML IV SCH ×2 (07:50→20:35)
[2021-07-28] MEDS: lactobacillus rhamnosus 10,000 MMU CELLS/CAPSULE PO SCH (07:50)
[2021-07-28] MEDS: enoxaparin 40mg/0.4ml syringe SQ SCH ×2 (07:51→20:34)
[2021-07-28] MEDS: folic acid 1mg/0.2ml inj IV SCH (07:51)
[2021-07-28] MEDS ORDERED: MVI, adult No.4 with vit. K 10 ML in dextrose 5% water 500ml 500 ML IV SCH ×2 (10:00)
[2021-07-28] MEDS: furosemide 40mg/4ml inj IV SCH ×2 (10:31→20:34)
[2021-07-28] MEDS ORDERED: magnesium Cl slow-release 64mg tablet PO PRN (12:05)
[2021-07-28] MEDS ORDERED: magnesium 4gm in 100ml NS 100 ML IV PRN (12:05)
[2021-07-28] MEDS ORDERED: potassium Cl 20 mEq SR tablet PO PRN ×2 (12:05)
[2021-07-28] MEDS ORDERED: magnesium 2GM in 50ml NS 50 ML IV PRN (12:05)
--- NOTE | 2021-07-28 13:07 | NUR ---
TF consult: Pt remains intubated, to begin TF and wean TPN per MD, see recommendations below. A scaled weight was obtained and pt with an appropriate BMI though will continue to use IBW for estimated nutrient needs in view of malnutrition. Confirmed with RN that pt currently not receiving Propofol. Per MD note pt's family reported that pt is a heavy alcoholic, pt started on routine Thiamine, Folic acid, and MVI. LBM 12/ and not receiving routine bowel care, though no nutrition admin enterally since admit and pt s/p exploratory laparotomy with repair of perforated gastric ulcer. Hopeful that pt will have a BM following transitioning nutrition to EN from PN. Will continue to follow closely and make recommendations as appropriate. Recommendations: 1. Continuous TF via OGT using Vital AF with 50 mL/hr goal rate to provide 1200 mL total volume/day, 1440 kcal, 90 g protein, and 973 mL water 2. Additional 75 mL water flush Q4H; monitor serum Na and need to adjust 3. As TF increases wean continuous TPN using 2:1 Climimix-E 12/27 with goal rate of 69 mL/hr with additional 250 mL 20% intralipids to run at 20.83 mL/hr for 12 hours on Tuesdays and Fridays. To provide 1656 mL total volume/day, 83 g AA, 248 g dext (5.06 mg/kg/min dext load, though current wt isn't scaled), and average 1318 kcal/day 4. Prealbumin q Tuesday/ 5. Daily scaled weights 6. Continue routine Thiamine, Folic acid, and MVI for EtOH hx 7. Bowel care per rx post-op 8. Upon extubation, advance diet per ST/ recs to regular as medically indicated Addendum: 07/28/21 at [address] Amended: Links added.
[2021-07-28] MEDS: nicotine 14mg patch - 24hr TD SCH (13:42)
[2021-07-28] MEDS ORDERED: dextrose ORAL solution 15 GM/59 ML bottle OGT PRN ×2 (14:08)
[2021-07-28] MEDS ORDERED: potassium Cl 20 mEq SR tablet OGT PRN ×2 (14:10)
[2021-07-28] MEDS: potassium Cl 20mEq/100mL bag 100 ML IV PRN ×2 (14:35→22:51)
--- NOTE | 2021-07-28 16:20 | NUR ---
Pt. not started on tube feeding because a pump is not available.
[2021-07-28] MEDS ORDERED: furosemide 40mg/4ml inj IV SCH (20:00)
--- NOTE | 2021-07-28 20:10 | NUR ---
Fingerstick capillary glucose 68, pt's has history of PVD, extremities cold and purplish. No s/sx of hypoglycemia noted, pt is on continuous TPN. Arterial sample obtained for blood glucose, result 131, will treat this value instead.
[2021-07-28] MEDS: ZINC/COPPER/MANGANESE/SELENIUM 1 ML, chromic chloride inj. 10 MCG in AA 5%/D15W/ELECTRO... IV SCH (20:35)
[2021-07-28] MEDS: lactobacillus rhamnosus 10,000 MMU CELLS/CAPSULE OGT SCH (20:35)
[2021-07-28] MEDS: insulin glargine (Lantus) pen - multi-dose SQ SCH (20:45)
[2021-07-28 22:11] LABS: POTASSIUM 2.8 MMOL/L (3.5-5.1)
[2021-07-28] MEDS: diltiazem-NS 100mg/100ml 100 ML IV SCH (22:39)
[2021-07-28 22:54] LABS: MAGNESIUM 1.5 MG/DL (1.5-2.4)
--- NOTE | 2021-07-28 23:00 | NUR ---
2134 - Rhythm change from Sinus rhythm to Afib noted, heart rate 120s-130s. 2149 - EKG done, rhythm confirmed to be Afib. 2199 - Dr Richards made aware of rhythm change via phone, orders received to start Cardizem gtt. Awaiting for Rx to compound at this time. 2219 - Critical K level @ 2.[address] Richards, K replacement orders to 4 received/
[2021-07-28] MEDS: magnesium 2GM in 50ml NS 50 ML IV PRN (23:30)
[2021-07-29] VITALS (26 sets, daily range): BP systolic 85–181; BP diastolic 47–75
[2021-07-29] MEDS: piperacillin/tazo 3.375gm/50ml 50 ML IV SCH ×3 (00:01→15:23)
[2021-07-29] MEDS: potassium Cl 20mEq/100mL bag 100 ML IV PRN ×5 (00:03→13:08)
[2021-07-29] MEDS: mineral oil/petrolatum ophthal oint EACHEYE SCH ×4 (02:04→20:23)
[2021-07-29] MEDS: insulin regular, human U-100 3ml vial - multi-dose SQ SCH (02:37)
[2021-07-29 03:33] LABS: ABG HCO3 25.7 mmol/L (22.0-26.0); ABG OXYGEN SATURATION 97.5 % (94-97); ABG PCO2 (T) 37.6 mmHg (32.0-45.0); ABG PO2 (T) 101.2 mmHg (75.0-100.0); FCOHb 0.2 % (0.0-3.9); FMetHb 0.1 % (0.0-1.5); FO2Hb 97.2 % (94-97); PATIENT TEMPERATURE 37.6; PEEP 5 cm H2O; RESPIRATORY RATE 16 b/min; TIDAL VOLUME 350 mL
[2021-07-29 04:42] LABS: EOSINOPHILS # (AUTO) 0.2 X10'3 (0-0.9)
[2021-07-29 04:43] LABS: BASOPHILS % (AUTO) 0.1 % (0-1); EOSINOPHILS % (AUTO) 1.2 % (0-6); HEMATOCRIT 29.4 % (35.0-45.0); HEMOGLOBIN 9.9 g/dl (12.0-16.0); LYMPHOCYTES # (AUTO) 0.3 X10'3 (1.1-4.8); LYMPHOCYTES % (AUTO) 2.3 % (21-51); MEAN CORPUSCULAR HEMOGLOBIN 30.9 PG (27.0-31.0); MEAN CORPUSCULAR HGB CONC 33.6 g/dL (33.0-36.5); MEAN PLATELET VOLUME 8.7 FL (7.4-10.4); MONOCYTES % (AUTO) 0.3 % (2-12); NEUTROPHILS # (AUTO) 13.3 X10'3 (1.8-7.7); NEUTROPHILS % (AUTO) 96.1 % (42-75); PLATELET COUNT 181 X10'3 (140-440); RED CELL DISTRIBUTION WIDTH 15.5 % (11.5-14.5); WHITE BLOOD COUNT 13.9 X10'3 (4.5-11.0)
[2021-07-29 04:53] LABS: ALANINE AMINOTRANSFERASE 61 U/L (12-78); ALBUMIN/GLOBULIN RATIO 0.3 (1.1-1.5); ALKALINE PHOSPHATASE 77 IU/L (46-116); ANION GAP 8 (8-16); ASPARTATE AMINO TRANSFERASE 83 U/L (10-37); BILIRUBIN,TOTAL 1.5 MG/DL (0.1-1.0); BLOOD UREA NITROGEN 53 MG/DL (7-18); BUN/CREATININE RATIO 48.2 (6.6-38.0); CALCIUM 7.4 MG/DL (8.5-10.1); CHLORIDE 101 MMOL/L (99-107); GLUCOSE 93 MG/DL (70-104); MAGNESIUM 2.1 MG/DL (1.5-2.4); PHOSPHORUS 2.4 MG/DL (2.3-4.5); POTASSIUM 4.4 MMOL/L (3.5-5.1); SODIUM 135 MMOL/L (135-145); TOTAL CARBON DIOXIDE 25.7 MMOL/L (24-32); TOTAL PROTEIN 4.5 G/DL (6.4-8.2); eGFR 50 ML/MIN
[2021-07-29] MEDS ORDERED: LIDOcaine 1% 30ml preserv. free vial IJ STA (07:57)
[2021-07-29] MEDS ORDERED: multi-vitamin w/minerals & ferrous gluconate 9 MG/15 ML oral LIQUID OGT SCH (08:00)
[2021-07-29] MEDS: K and/or MAG REPLACEMENT MC SCH (08:00)
[2021-07-29 08:14] LABS: NUCLEATED RED BLOOD CELLS 6 /100WBC (0-0); TOTAL CELLS COUNTED 100
[2021-07-29 08:15] LABS: ANISOCYTOSIS 1+; LARGE PLATELETS FEW; PLATELET ESTIMATE NORMAL; POLYCHROMASIA 1+; SCHISTOCYTES FEW
[2021-07-29] MEDS: furosemide 40mg/4ml inj IV SCH ×2 (08:27→20:23)
[2021-07-29] MEDS: thiamine inj. 100 MG in normal saline 100ml IV soln 100 ML IV SCH (08:27)
[2021-07-29] MEDS: lactobacillus rhamnosus 10,000 MMU CELLS/CAPSULE OGT SCH ×2 (08:27→20:25)
[2021-07-29] MEDS: pantoprazole IV 40 MG in dextrose 5%-water 100 ML IV SCH ×2 (08:27→20:23)
[2021-07-29] MEDS: nicotine 14mg patch - 24hr TD SCH (08:28)
[2021-07-29 11:53] LABS: POTASSIUM 3.2 MMOL/L (3.5-5.1)
[2021-07-29] MEDS: FENTANYL-0.9 % NACL/PF 100 ML IV PRN (13:53)
[2021-07-29 14:40] LABS: MAGNESIUM 1.9 MG/DL (1.5-2.4); POTASSIUM 4.6 MMOL/L (3.5-5.1)
[2021-07-29] MEDS: folic acid 1mg/0.2ml inj IV SCH (15:12)
[2021-07-29] MEDS: enoxaparin 40mg/0.4ml syringe SQ SCH ×2 (15:12→20:23)
[2021-07-29] MEDS: magnesium 2GM in 50ml NS 50 ML IV PRN (15:23)
--- NOTE | 2021-07-29 16:05 | NUR ---
TF started @1600. TPN rate reduced to 34.5 mLs/hr.
[2021-07-29] MEDS: diltiazem-NS 100mg/100ml 100 ML IV SCH (18:15)
[2021-07-29] MEDS: dextrose 50%-water 50ml dispensing syringe IV PRN (20:15)
[2021-07-29] MEDS: ZINC/COPPER/MANGANESE/SELENIUM 1 ML, chromic chloride inj. 10 MCG in AA 5%/D15W/ELECTRO... IV SCH (20:23)
--- NOTE | 2021-07-29 20:40 | NUR ---
Blood glucose 64, Dextrose 50% IV 25ml given per protocol with improvement of blood sugar to 159. Insulin coverage and Lanlizzieus held. Addendum: 07/30/21 at 0053 by Du Austin RN Amended: Links added.
[2021-07-29] MEDS: insulin glargine (Lantus) pen - multi-dose SQ SCH (21:00)
--- NOTE | 2021-07-29 21:25 | NUR ---
Rhythm change from sinus rhythm to Afib noted, HR to the 120s. Cardizem gtt was turned off during dayshift, Dr Richards made aware, ordered to restart Cardizem gtt per protocol. Hypoglycemic episode also reported, orders obtained to hold Lantus dose tonight, increase tube feeding rate to 30ml/hr and keep TPN rate at same rate until blood sugar wnl.
[2021-07-30] VITALS (23 sets, daily range): BP systolic 96–170; BP diastolic 35–70
[2021-07-30] MEDS: piperacillin/tazo 3.375gm/50ml 50 ML IV SCH ×3 (00:18→16:38)
[2021-07-30] MEDS: diltiazem-NS 100mg/100ml 100 ML IV SCH (00:18)
[2021-07-30] MEDS: mineral oil/petrolatum ophthal oint EACHEYE SCH ×4 (02:06→20:30)
[2021-07-30] MEDS: insulin regular, human U-100 3ml vial - multi-dose SQ SCH (02:31)
[2021-07-30 03:13] LABS: BASOPHILS % (AUTO) 0.2 % (0-1); EOSINOPHILS # (AUTO) 0.1 X10'3 (0-0.9); HEMATOCRIT 28.1 % (35.0-45.0); HEMOGLOBIN 9.2 g/dl (12.0-16.0); LYMPHOCYTES # (AUTO) 0.3 X10'3 (1.1-4.8); NEUTROPHILS # (AUTO) 10.1 X10'3 (1.8-7.7); WHITE BLOOD COUNT 11.2 X10'3 (4.5-11.0)
[2021-07-30 03:16] LABS: EOSINOPHILS % (AUTO) 0.9 % (0-6); LYMPHOCYTES % (AUTO) 2.7 % (21-51); MEAN CORPUSCULAR HEMOGLOBIN 29.9 PG (27.0-31.0); MEAN CORPUSCULAR HGB CONC 32.8 g/dL (33.0-36.5); MEAN CORPUSCULAR VOLUME 91.2 FL (78-98); MEAN PLATELET VOLUME 9.1 FL (7.4-10.4); MONOCYTES # (AUTO) 0.8 X10'3 (0-0.9); MONOCYTES % (AUTO) 6.8 % (2-12); NEUTROPHILS % (AUTO) 89.4 % (42-75); PLATELET COUNT 234 X10'3 (140-440); RED BLOOD COUNT 3.09 X10'6 (4.20-5.60); RED CELL DISTRIBUTION WIDTH 15.3 % (11.5-14.5)
[2021-07-30 03:39] LABS: ALANINE AMINOTRANSFERASE 57 U/L (12-78); ALBUMIN/GLOBULIN RATIO 0.3 (1.1-1.5); ALKALINE PHOSPHATASE 87 IU/L (46-116); ANION GAP 8 (8-16); ASPARTATE AMINO TRANSFERASE 85 U/L (10-37); BILIRUBIN,TOTAL 1.8 MG/DL (0.1-1.0); BLOOD UREA NITROGEN 57 MG/DL (7-18); BUN/CREATININE RATIO 51.4 (6.6-38.0); CALCIUM 7.2 MG/DL (8.5-10.1); CHLORIDE 96 MMOL/L (99-107); CREATININE 1.11 MG/DL (0.40-0.90); GLUCOSE 108 MG/DL (70-104); MAGNESIUM 2.3 MG/DL (1.5-2.4); PHOSPHORUS 2.8 MG/DL (2.3-4.5); PREALBUMIN 6.7 MG/DL (19-36); SODIUM 136 MMOL/L (135-145); TOTAL CARBON DIOXIDE 31.7 MMOL/L (24-32); TOTAL PROTEIN 4.7 G/DL (6.4-8.2); eGFR 50 ML/MIN
[2021-07-30 03:46] LABS: POTASSIUM 2.7 MMOL/L (3.5-5.1)
[2021-07-30] MEDS: potassium Cl 20mEq/100mL bag 100 ML IV PRN ×4 (03:52→11:30)
[2021-07-30 04:18] LABS: TOTAL CELLS COUNTED 100
[2021-07-30 04:20] LABS: ANISOCYTOSIS 1+; PLATELET ESTIMATE NORMAL
[2021-07-30 04:21] LABS: LARGE PLATELETS FEW; POLYCHROMASIA FEW; SCHISTOCYTES FEW
[2021-07-30] MEDS: FENTANYL-0.9 % NACL/PF 100 ML IV PRN ×2 (05:33→05:41)
[2021-07-30] MEDS: furosemide 40mg/4ml inj IV SCH (08:00)
[2021-07-30] MEDS: K and/or MAG REPLACEMENT MC SCH (08:00)
[2021-07-30] MEDS: dextrose 50%-water 50ml dispensing syringe IV PRN ×2 (08:50→11:27)
[2021-07-30] MEDS: pantoprazole IV 40 MG in dextrose 5%-water 100 ML IV SCH ×2 (09:29→20:30)
[2021-07-30] MEDS: enoxaparin 40mg/0.4ml syringe SQ SCH ×2 (09:29→20:29)
[2021-07-30] MEDS: folic acid 1mg/0.2ml inj IV SCH (09:29)
[2021-07-30] MEDS: thiamine inj. 100 MG in normal saline 100ml IV soln 100 ML IV SCH (09:29)
[2021-07-30] MEDS: nicotine 14mg patch - 24hr TD SCH (09:30)
[2021-07-30] MEDS: MULTIVIT-MIN/FERROUS GLUCONATE 9 MG/15 ML LIQUID OGT SCH (09:33)
[2021-07-30] MEDS: lactobacillus rhamnosus 10,000 MMU CELLS/CAPSULE OGT SCH ×2 (09:33→20:29)
--- NOTE | 2021-07-30 11:24 | NUR ---
F/u: LBGarret 07/23 with no bowel care available, d/w . Pt to begin routine bowel care per . Addendum: 07/30/21 at [address] Amended: Links added.
[2021-07-30] MEDS: docusate sodium 100mg/10ml UD cup OGT SCH ×2 (13:32→20:29)
[2021-07-30] MEDS: Dextrose 10%-water IV solution 1,000 ML IV SCH (13:32)
--- NOTE | 2021-07-30 15:20 | NUR ---
Arrived on unit to assess skin, per RAMO Hamm pt is not stable enough to turn at this time. Per RAMO skin remains intact. Addendum: 07/30/21 at 1521 by Sandi Louie RN Amended: Links added.
[2021-07-30] MEDS: ZINC/COPPER/MANGANESE/SELENIUM 1 ML, chromic chloride inj. 10 MCG in AA 5%/D15W/ELECTRO... IV SCH (20:00)
[2021-07-30] MEDS: sennosides 8.6mg tablet OGT SCH (20:31)
[2021-07-31] VITALS (32 sets, daily range): BP systolic 97–170; BP diastolic 41–71
[2021-07-31] MEDS: piperacillin/tazo 3.375gm/50ml 50 ML IV SCH ×3 (00:24→15:55)
[2021-07-31 02:10] LABS: ABG BASE EXCESS 9.8 mmol/L (-2.0-2.0); ABG HCO3 32.7 mmol/L (22.0-26.0); ABG PCO2 (T) 38.3 mmHg (32.0-45.0); ABG PO2 (T) 96.5 mmHg (75.0-100.0); ALLEN'S TEST POSITIVE; FCOHb 0.1 % (0.0-3.9); FMetHb 0.3 % (0.0-1.5); FO2Hb 96.6 % (94-97); PATIENT TEMPERATURE 37.6; PEEP 5 cm H2O; RESPIRATORY RATE 16 b/min; TIDAL VOLUME 350 mL; TOTAL HEMOGLOBIN 8.1 G/dl (12.0-16.0)
[2021-07-31] MEDS: mineral oil/petrolatum ophthal oint EACHEYE SCH ×4 (02:46→20:11)
[2021-07-31] MEDS: FENTANYL-0.9 % NACL/PF 100 ML IV PRN ×2 (02:46→20:41)
--- NOTE | 2021-07-31 02:48 | NUR ---
Tube feeding on hold at this time as there no more Vital AF 1.2 found on the unit. Pt already on Dextrose 10 @ 50ml/hr, blood sugar 139, will continue to monitor blood sugar while off tube feeding.
[2021-07-31 03:23] LABS: BASOPHILS % (AUTO) 0.1 % (0-1); EOSINOPHILS # (AUTO) 0.3 X10'3 (0-0.9); EOSINOPHILS % (AUTO) 2.8 % (0-6); HEMOGLOBIN 7.2 g/dl (12.0-16.0); LYMPHOCYTES # (AUTO) 0.5 X10'3 (1.1-4.8); LYMPHOCYTES % (AUTO) 4.9 % (21-51); MEAN CORPUSCULAR HEMOGLOBIN 30.5 PG (27.0-31.0); MEAN CORPUSCULAR HGB CONC 33.7 g/dL (33.0-36.5); MEAN CORPUSCULAR VOLUME 90.6 FL (78-98); MEAN PLATELET VOLUME 8.8 FL (7.4-10.4); MONOCYTES # (AUTO) 0.5 X10'3 (0-0.9); MONOCYTES % (AUTO) 5.8 % (2-12); NEUTROPHILS # (AUTO) 8.1 X10'3 (1.8-7.7); NEUTROPHILS % (AUTO) 86.4 % (42-75); PLATELET COUNT 242 X10'3 (140-440); RED BLOOD COUNT 2.37 X10'6 (4.20-5.60); RED CELL DISTRIBUTION WIDTH 15.3 % (11.5-14.5); WHITE BLOOD COUNT 9.4 X10'3 (4.5-11.0)
[2021-07-31 03:33] LABS: HEMATOCRIT 21.5 % (35.0-45.0)
[2021-07-31 03:38] LABS: ALBUMIN 0.9 G/DL (3.4-5.0); ALBUMIN/GLOBULIN RATIO 0.3 (1.1-1.5); ANION GAP 2 (8-16); ASPARTATE AMINO TRANSFERASE 112 U/L (10-37); BILIRUBIN,TOTAL 1.3 MG/DL (0.1-1.0); BLOOD UREA NITROGEN 43 MG/DL (7-18); CALCIUM 6.8 MG/DL (8.5-10.1); CHLORIDE 96 MMOL/L (99-107); GLUCOSE 144 MG/DL (70-104); MAGNESIUM 1.8 MG/DL (1.5-2.4); PHOSPHORUS 1.8 MG/DL (2.3-4.5); SODIUM 131 MMOL/L (135-145); TOTAL CARBON DIOXIDE 33.5 MMOL/L (24-32); TOTAL PROTEIN 4.3 G/DL (6.4-8.2); eGFR 56 ML/MIN
[2021-07-31 03:39] LABS: ALANINE AMINOTRANSFERASE 70 U/L (12-78); ALKALINE PHOSPHATASE 234 IU/L (46-116)
[2021-07-31 03:43] LABS: POTASSIUM 2.8 MMOL/L (3.5-5.1)
[2021-07-31] MEDS: potassium Cl 20mEq/100mL bag 100 ML IV PRN ×2 (03:54→05:08)
[2021-07-31 06:16] LABS: BASOPHILS % (AUTO) 0.1 % (0-1); EOSINOPHILS # (AUTO) 0.3 X10'3 (0-0.9); EOSINOPHILS % (AUTO) 2.9 % (0-6); LYMPHOCYTES # (AUTO) 0.5 X10'3 (1.1-4.8); LYMPHOCYTES % (AUTO) 4.8 % (21-51); MEAN CORPUSCULAR HEMOGLOBIN 30.4 PG (27.0-31.0); MEAN CORPUSCULAR HGB CONC 33.6 g/dL (33.0-36.5); MEAN CORPUSCULAR VOLUME 90.6 FL (78-98); MEAN PLATELET VOLUME 8.8 FL (7.4-10.4); MONOCYTES # (AUTO) 0.5 X10'3 (0-0.9); MONOCYTES % (AUTO) 4.8 % (2-12); NEUTROPHILS # (AUTO) 8.5 X10'3 (1.8-7.7); NEUTROPHILS % (AUTO) 87.4 % (42-75); PRE OP PLATELET COUNT 249 X10'3 (140-440); RED BLOOD COUNT 2.42 X10'6 (4.20-5.60); RED CELL DISTRIBUTION WIDTH 15.2 % (11.5-14.5)
[2021-07-31 06:23] LABS: PRE OP HEMOGLOBIN 7.4 g/dL (12.0-16.0)
[2021-07-31] MEDS: K and/or MAG REPLACEMENT MC SCH (08:00)
[2021-07-31] MEDS: folic acid 1mg/0.2ml inj IV SCH (08:55)
[2021-07-31] MEDS: pantoprazole IV 40 MG in dextrose 5%-water 100 ML IV SCH ×2 (08:57→20:11)
[2021-07-31] MEDS: enoxaparin 40mg/0.4ml syringe SQ SCH ×2 (09:00→20:00)
[2021-07-31] MEDS: Dextrose 10%-water IV solution 1,000 ML IV SCH (09:00)
[2021-07-31] MEDS: thiamine inj. 100 MG in normal saline 100ml IV soln 100 ML IV SCH (09:02)
[2021-07-31] MEDS: docusate sodium 100mg/10ml UD cup OGT SCH ×2 (09:02→20:11)
[2021-07-31] MEDS: lactobacillus rhamnosus 10,000 MMU CELLS/CAPSULE OGT SCH ×2 (09:02→20:11)
[2021-07-31] MEDS: POTASSIUM BICARB 20meq eff tab 20 MEQ TABLET.EFF OGT SCH (09:03)
[2021-07-31] MEDS: MULTIVIT-MIN/FERROUS GLUCONATE 9 MG/15 ML LIQUID OGT SCH (09:03)
[2021-07-31] MEDS: nicotine 14mg patch - 24hr TD SCH (09:28)
[2021-07-31] MEDS: diltiazem-NS 100mg/100ml 100 ML IV SCH (10:15)
--- NOTE | 2021-07-31 11:39 | NUR ---
Reassessment: Pt remains intubated. TF has been off d/t no formula being available per roll off driver 07/31 02:48. D/w current bedside RN and multidisciplinary team that formula is available at all times of the day. TF to resume today. Pt receiving D10 at 50 mL/hr (408 kcal/day) per MD d/t pt with multiple episodes of hypoglycemia. Will monitor labs and dextrose rate and need to adjust TF recommendations. LBM 07/23. Pt started on routine bowel care 07/30. Noted pt found to have a DTI to sacrum per physical assessment. Pt already receiving increased protein once TF is at goal rate. Will continue to follow closely and make recommendations as appropriate. Recommendations: 1. Continuous TF via OGT using Vital AF with 50 mL/hr goal rate to provide 1200 mL total volume/day, 1440 kcal, 90 g protein, and 973 mL water 2. Additional 75 mL water flush Q4H; monitor serum Na and need to adjust 3. Prealbumin q Tuesday/ 4. Daily scaled weights 5. Monitor labs and Dextrose rate and need to adjust TF 6. Continue routine Thiamine, Folic acid, and MVI for EtOH hx 7. Routine bowel care 8. Upon extubation, advance diet per ST/ recs to regular as medically indicated Addendum: 07/31/21 at [address] Amended: Links added.
[2021-07-31 14:11] LABS: MEAN CORPUSCULAR HEMOGLOBIN 30.2 PG (27.0-31.0); MEAN CORPUSCULAR HGB CONC 33.6 g/dL (33.0-36.5); MEAN CORPUSCULAR VOLUME 90.1 FL (78-98); MEAN PLATELET VOLUME 8.5 FL (7.4-10.4); PLATELET COUNT 232 X10'3 (140-440); RED BLOOD COUNT 2.18 X10'6 (4.20-5.60); WHITE BLOOD COUNT 9.8 X10'3 (4.5-11.0)
[2021-07-31 14:17] LABS: HEMATOCRIT 19.6 % (35.0-45.0); HEMOGLOBIN 6.6 g/dl (12.0-16.0)
[2021-07-31 14:27] LABS: ALBUMIN 0.9 G/DL (3.4-5.0); ANION GAP 3 (8-16); BLOOD UREA NITROGEN 37 MG/DL (7-18); BUN/CREATININE RATIO 40.2 (6.6-38.0); CALCIUM 6.6 MG/DL (8.5-10.1); CHLORIDE 97 MMOL/L (99-107); CREATININE 0.92 MG/DL (0.40-0.90); GLUCOSE 135 MG/DL (70-104); POTASSIUM 3.9 MMOL/L (3.5-5.1); SODIUM 133 MMOL/L (135-145); TOTAL CARBON DIOXIDE 32.7 MMOL/L (24-32); eGFR 62 ML/MIN
[2021-07-31] MEDS: sennosides 8.6mg tablet OGT SCH (20:11)
--- NOTE | 2021-07-31 20:13 | NUR ---
Thax held as pt's Hemoglobin dropping requiring blood transfusion, currently at 6.2. No overt signs of bleeding. Addendum: 07/31/21 at 2118 by Du Austin RN data technician error: patient's Hgb 6.6
[2021-08-01] VITALS (22 sets, daily range): BP systolic 88–122; BP diastolic 41–63
--- NOTE | 2021-08-01 | NUR ---
Free water flush held as pt's Na is 133. Addendum: 08/01/21 at 0121 by Du Austin RN Amended: Links added.
[2021-08-01] MEDS: piperacillin/tazo 3.375gm/50ml 50 ML IV SCH ×3 (00:24→16:14)
[2021-08-01] MEDS: mineral oil/petrolatum ophthal oint EACHEYE SCH ×4 (02:31→20:00)
[2021-08-01 03:04] LABS: BASOPHILS % (AUTO) 0.1 % (0-1); EOSINOPHILS # (AUTO) 0.1 X10'3 (0-0.9); EOSINOPHILS % (AUTO) 1.1 % (0-6); HEMATOCRIT 32.1 % (35.0-45.0); HEMOGLOBIN 11.3 g/dl (12.0-16.0); LYMPHOCYTES # (AUTO) 0.3 X10'3 (1.1-4.8); LYMPHOCYTES % (AUTO) 3.1 % (21-51); MEAN CORPUSCULAR HEMOGLOBIN 31.4 PG (27.0-31.0); MEAN CORPUSCULAR HGB CONC 35.2 g/dL (33.0-36.5); MEAN PLATELET VOLUME 8.7 FL (7.4-10.4); MONOCYTES # (AUTO) 0.4 X10'3 (0-0.9); MONOCYTES % (AUTO) 3.9 % (2-12); NEUTROPHILS # (AUTO) 9.4 X10'3 (1.8-7.7); NEUTROPHILS % (AUTO) 91.8 % (42-75); PLATELET COUNT 209 X10'3 (140-440); RED CELL DISTRIBUTION WIDTH 14.5 % (11.5-14.5); WHITE BLOOD COUNT 10.2 X10'3 (4.5-11.0)
[2021-08-01 03:27] LABS: ALANINE AMINOTRANSFERASE 65 U/L (12-78); ALBUMIN 0.9 G/DL (3.4-5.0); ALBUMIN/GLOBULIN RATIO 0.3 (1.1-1.5); ALKALINE PHOSPHATASE 235 IU/L (46-116); ANION GAP 5 (8-16); ASPARTATE AMINO TRANSFERASE 107 U/L (10-37); BILIRUBIN,TOTAL 1.7 MG/DL (0.1-1.0); BLOOD UREA NITROGEN 32 MG/DL (7-18); BUN/CREATININE RATIO 38.1 (6.6-38.0); CALCIUM 6.7 MG/DL (8.5-10.1); CHLORIDE 95 MMOL/L (99-107); CREATININE 0.84 MG/DL (0.40-0.90); GLUCOSE 119 MG/DL (70-104); MAGNESIUM 1.6 MG/DL (1.5-2.4); PHOSPHORUS 1.3 MG/DL (2.3-4.5); POTASSIUM 3.2 MMOL/L (3.5-5.1); SODIUM 131 MMOL/L (135-145); TOTAL CARBON DIOXIDE 30.6 MMOL/L (24-32); TOTAL PROTEIN 4.4 G/DL (6.4-8.2); TRIGLYCERIDES 74 MG/DL (20-135); eGFR 69 ML/MIN
[2021-08-01] MEDS: potassium Cl 20mEq/100mL bag 100 ML IV PRN ×2 (03:49→04:58)
[2021-08-01 03:54] LABS: ABG BASE EXCESS 7.1 mmol/L (-2.0-2.0); ABG HCO3 29.4 mmol/L (22.0-26.0); ABG OXYGEN SATURATION 96.8 % (94-97); ABG PCO2 (T) 34.9 mmHg (32.0-45.0); ABG PO2 (T) 83.1 mmHg (75.0-100.0); FCOHb 0.8 % (0.0-3.9); FMetHb 0.2 % (0.0-1.5); FO2Hb 95.8 % (94-97); PATIENT TEMPERATURE 37.9; PEEP 5 cm H2O; RESPIRATORY RATE 16 b/min; TIDAL VOLUME 350 mL; TOTAL HEMOGLOBIN 11.9 G/dl (12.0-16.0)
[2021-08-01] MEDS: midazolam 100mg in NS 100ml 100 ML IV PRN (04:55)
[2021-08-01] MEDS: Dextrose 10%-water IV solution 1,000 ML IV SCH (04:55)
--- NOTE | 2021-08-01 06:38 | NUR ---
Problems reprioritized. Patient report given, questions answered & plan of care reviewed with oncoming RN. Pt stable at the time of handoff.
[2021-08-01] MEDS: enoxaparin 40mg/0.4ml syringe SQ SCH ×2 (09:33→22:41)
[2021-08-01] MEDS: nicotine 14mg patch - 24hr TD SCH (09:34)
[2021-08-01] MEDS: POTASSIUM BICARB 20meq eff tab 20 MEQ TABLET.EFF OGT SCH (09:34)
[2021-08-01] MEDS: pantoprazole IV 40 MG in dextrose 5%-water 100 ML IV SCH ×2 (09:35→22:43)
[2021-08-01] MEDS: thiamine inj. 100 MG in normal saline 100ml IV soln 100 ML IV SCH (09:35)
[2021-08-01] MEDS: folic acid 1mg/0.2ml inj IV SCH (09:35)
[2021-08-01] MEDS: docusate sodium 100mg/10ml UD cup OGT SCH ×2 (09:36→22:39)
[2021-08-01] MEDS: lactobacillus rhamnosus 10,000 MMU CELLS/CAPSULE OGT SCH ×2 (09:36→22:41)
[2021-08-01] MEDS: MULTIVIT-MIN/FERROUS GLUCONATE 9 MG/15 ML LIQUID OGT SCH (09:36)
[2021-08-01] MEDS: dextrose 50%-water 50ml dispensing syringe IV PRN (14:32)
[2021-08-01] MEDS: FENTANYL-0.9 % NACL/PF 100 ML IV PRN (15:11)
[2021-08-01] MEDS ORDERED: sodium phosphate inj. 30 MMOL in dextrose 5%-water 250 ML IV PRN (16:45)
[2021-08-01] MEDS ORDERED: Neutra Phos packet PO PRN (16:45)
[2021-08-01] MEDS ORDERED: sodium phosphate inj. 15 MMOL in dextrose 5%-water 250 ML IV PRN (16:45)
--- NOTE | 2021-08-01 18:30 | NUR ---
Patient in room [facility] 2015. I have received report from Barrington RALPH and had the opportunity to ask questions and assume patient care. Addendum: 08/01/21 at 2315 by June More RN Amended: Links added. Addendum: 08/02/21 at 0003 by June More RN Out of ratio. Currently assigned 3 patients including 2 on ventilators.
[2021-08-01 22:05] LABS: ALBUMIN 0.9 G/DL (3.4-5.0); ANION GAP 4 (8-16); BLOOD UREA NITROGEN 28 MG/DL (7-18); BUN/CREATININE RATIO 36.4 (6.6-38.0); CALCIUM 6.6 MG/DL (8.5-10.1); CHLORIDE 94 MMOL/L (99-107); CREATININE 0.77 MG/DL (0.40-0.90); GLUCOSE 113 MG/DL (70-104); MAGNESIUM 1.5 MG/DL (1.5-2.4); PHOSPHORUS 1.4 MG/DL (2.3-4.5); POTASSIUM 3.2 MMOL/L (3.5-5.1); SODIUM 129 MMOL/L (135-145); TOTAL CARBON DIOXIDE 30.7 MMOL/L (24-32); eGFR 76 ML/MIN
[2021-08-01] MEDS: sennosides 8.6mg tablet OGT SCH (22:41)
[2021-08-02] VITALS (24 sets, daily range): BP systolic 61–148; BP diastolic 36–89
[2021-08-02] MEDS: piperacillin/tazo 3.375gm/50ml 50 ML IV SCH ×4 (01:07→23:20)
[2021-08-02] MEDS: Dextrose 10%-water IV solution 1,000 ML IV SCH (01:25)
[2021-08-02] MEDS: mineral oil/petrolatum ophthal oint EACHEYE SCH ×4 (02:00→20:14)
[2021-08-02 03:53] LABS: ALANINE AMINOTRANSFERASE 65 U/L (12-78); ALBUMIN 0.9 G/DL (3.4-5.0); ALBUMIN/GLOBULIN RATIO 0.2 (1.1-1.5); ALKALINE PHOSPHATASE 239 IU/L (46-116); ANION GAP 6 (8-16); ASPARTATE AMINO TRANSFERASE 85 U/L (10-37); BILIRUBIN,TOTAL 1.4 MG/DL (0.1-1.0); BLOOD UREA NITROGEN 25 MG/DL (7-18); BUN/CREATININE RATIO 34.2 (6.6-38.0); CHLORIDE 92 MMOL/L (99-107); CREATININE 0.73 MG/DL (0.40-0.90); GLUCOSE 110 MG/DL (70-104); MAGNESIUM 1.5 MG/DL (1.5-2.4); PHOSPHORUS 4.1 MG/DL (2.3-4.5); SODIUM 129 MMOL/L (135-145); TOTAL CARBON DIOXIDE 30.8 MMOL/L (24-32); TOTAL PROTEIN 4.7 G/DL (6.4-8.2); eGFR 81 ML/MIN
[2021-08-02 03:56] LABS: BASOPHILS % (AUTO) 0 % (0-1); EOSINOPHILS # (AUTO) 0.1 X10'3 (0-0.9); EOSINOPHILS % (AUTO) 0.9 % (0-6); HEMATOCRIT 30.8 % (35.0-45.0); HEMOGLOBIN 10.4 g/dl (12.0-16.0); LYMPHOCYTES # (AUTO) 0.3 X10'3 (1.1-4.8); LYMPHOCYTES % (AUTO) 2.4 % (21-51); MEAN CORPUSCULAR HEMOGLOBIN 30.6 PG (27.0-31.0); MEAN CORPUSCULAR VOLUME 90.1 FL (78-98); MEAN PLATELET VOLUME 8.8 FL (7.4-10.4); MONOCYTES # (AUTO) 0.4 X10'3 (0-0.9); MONOCYTES % (AUTO) 3.1 % (2-12); NEUTROPHILS # (AUTO) 12.5 X10'3 (1.8-7.7); NEUTROPHILS % (AUTO) 93.6 % (42-75); PLATELET COUNT 225 X10'3 (140-440); RED BLOOD COUNT 3.42 X10'6 (4.20-5.60); RED CELL DISTRIBUTION WIDTH 14.8 % (11.5-14.5); WHITE BLOOD COUNT 13.3 X10'3 (4.5-11.0)
[2021-08-02 03:58] LABS: ABG BASE EXCESS 7.6 mmol/L (-2.0-2.0); ABG HCO3 31.1 mmol/L (22.0-26.0); ABG OXYGEN SATURATION 97.3 % (94-97); ABG PCO2 (T) 39.3 mmHg (32.0-45.0); ABG PO2 (T) 85.2 mmHg (75.0-100.0); FCOHb 0.9 % (0.0-3.9); FO2Hb 96.4 % (94-97); PATIENT TEMPERATURE 36.7; PEEP 5 cm H2O; RESPIRATORY RATE 16 b/min; TIDAL VOLUME 350 mL; TOTAL HEMOGLOBIN 11.6 G/dl (12.0-16.0)
[2021-08-02] MEDS: potassium Cl 20mEq/100mL bag 100 ML IV PRN ×2 (05:56→11:07)
--- NOTE | 2021-08-02 06:24 | NUR ---
[id number] Dr. Mason updated on patient's status during rounds. Orders received. Problems reprioritized. Patient report given, questions answered & plan of care reviewed with Rafael RALPH.
[2021-08-02] MEDS: POTASSIUM BICARB 20meq eff tab 20 MEQ TABLET.EFF OGT SCH (08:00)
[2021-08-02] MEDS: enoxaparin 40mg/0.4ml syringe SQ SCH ×2 (08:33→20:14)
[2021-08-02] MEDS: thiamine inj. 100 MG in normal saline 100ml IV soln 100 ML IV SCH (08:33)
[2021-08-02] MEDS: docusate sodium 100mg/10ml UD cup OGT SCH ×2 (08:34→20:13)
[2021-08-02] MEDS: lactobacillus rhamnosus 10,000 MMU CELLS/CAPSULE OGT SCH ×2 (08:34→20:14)
[2021-08-02] MEDS: MULTIVIT-MIN/FERROUS GLUCONATE 9 MG/15 ML LIQUID OGT SCH (08:34)
[2021-08-02] MEDS: pantoprazole IV 40 MG in dextrose 5%-water 100 ML IV SCH ×2 (08:34→19:45)
[2021-08-02] MEDS: folic acid 1mg/0.2ml inj IV SCH (08:57)
[2021-08-02] MEDS: nicotine 14mg patch - 24hr TD SCH (08:58)
[2021-08-02] MEDS: dextrose 50%-water 50ml dispensing syringe IV PRN (13:38)
[2021-08-02] MEDS ORDERED: Dextrose 10%-water IV solution 1,000 ML IV SCH (16:20)
[2021-08-02] MEDS: dexmedetomidin/NS 400mcg/100ml 100 ML IV SCH (16:51)
--- NOTE | 2021-08-02 18:30 | NUR ---
Patient in room CICU 2015. I have received report from RAMO Oleary and had the opportunity to ask questions and assume patient care. Patient is intubated/sedated and resting comfortably, she opens eye spontaneously and moves extremities. I will continue to monitor.
[2021-08-02] MEDS: sennosides 8.6mg tablet OGT SCH (20:13)
[2021-08-02] MEDS: FENTANYL-0.9 % NACL/PF 100 ML IV PRN (21:37)
[2021-08-03] VITALS (24 sets, daily range): BP systolic 43–155; BP diastolic 26–72
[2021-08-03] MEDS: dexmedetomidin/NS 400mcg/100ml 100 ML IV SCH ×2 (01:11→16:40)
[2021-08-03] MEDS: mineral oil/petrolatum ophthal oint EACHEYE SCH ×4 (02:24→20:57)
--- NOTE | 2021-08-03 02:31 | NUR ---
Called Dr. Garces as patient's BP in and I have no pressers on order. Per MD give 1L fluid bolus and start Levo if the fluid does not increase the BP
[2021-08-03] MEDS ORDERED: normal saline 1000ml 1,000 ML IV ONE (02:35)
[2021-08-03] MEDS: NORepinephrine 8mg/ 250ml NS 250 ML IV SCH ×3 (02:51→21:01)
[2021-08-03 03:35] LABS: ABG BASE EXCESS 3.7 mmol/L (-2.0-2.0); ABG HCO3 26.5 mmol/L (22.0-26.0); ABG OXYGEN SATURATION 96.8 % (94-97); ABG PCO2 (T) 33.1 mmHg (32.0-45.0); ABG PO2 (T) 79.1 mmHg (75.0-100.0); FCOHb 0.9 % (0.0-3.9); FMetHb 0.3 % (0.0-1.5); FO2Hb 95.6 % (94-97); PATIENT TEMPERATURE 36.8; PEEP 5 cm H2O; RESPIRATORY RATE 16 b/min; TIDAL VOLUME 350 mL; TOTAL HEMOGLOBIN 10.3 G/dl (12.0-16.0)
[2021-08-03 03:44] LABS: ALANINE AMINOTRANSFERASE 52 U/L (12-78); ALBUMIN 0.8 G/DL (3.4-5.0); ALBUMIN/GLOBULIN RATIO 0.2 (1.1-1.5); ALKALINE PHOSPHATASE 198 IU/L (46-116); ANION GAP 4 (8-16); ASPARTATE AMINO TRANSFERASE 68 U/L (10-37); BILIRUBIN,TOTAL 1.4 MG/DL (0.1-1.0); BLOOD UREA NITROGEN 24 MG/DL (7-18); BUN/CREATININE RATIO 27.3 (6.6-38.0); CALCIUM 6.8 MG/DL (8.5-10.1); CHLORIDE 92 MMOL/L (99-107); CREATININE 0.88 MG/DL (0.40-0.90); GLUCOSE 156 MG/DL (70-104); MAGNESIUM 1.4 MG/DL (1.5-2.4); PHOSPHORUS 3.6 MG/DL (2.3-4.5); POTASSIUM 4.3 MMOL/L (3.5-5.1); SODIUM 125 MMOL/L (135-145); TOTAL CARBON DIOXIDE 28.9 MMOL/L (24-32); TOTAL PROTEIN 4.5 G/DL (6.4-8.2); eGFR 65 ML/MIN
[2021-08-03 03:59] LABS: BASOPHILS % (AUTO) 0.1 % (0-1); EOSINOPHILS % (AUTO) 0.4 % (0-6); HEMATOCRIT 24.7 % (35.0-45.0); HEMOGLOBIN 8.4 g/dl (12.0-16.0); LYMPHOCYTES # (AUTO) 0.3 X10'3 (1.1-4.8); LYMPHOCYTES % (AUTO) 2.2 % (21-51); MEAN CORPUSCULAR HEMOGLOBIN 31.1 PG (27.0-31.0); MEAN CORPUSCULAR HGB CONC 34.1 g/dL (33.0-36.5); MEAN CORPUSCULAR VOLUME 91.2 FL (78-98); MEAN PLATELET VOLUME 9.2 FL (7.4-10.4); MONOCYTES # (AUTO) 0.3 X10'3 (0-0.9); MONOCYTES % (AUTO) 2.9 % (2-12); NEUTROPHILS # (AUTO) 11.3 X10'3 (1.8-7.7); NEUTROPHILS % (AUTO) 94.4 % (42-75); PLATELET COUNT 206 X10'3 (140-440); RED BLOOD COUNT 2.71 X10'6 (4.20-5.60); RED CELL DISTRIBUTION WIDTH 14.7 % (11.5-14.5)
--- NOTE | 2021-08-03 06:12 | NUR ---
Problems reprioritized. Patient report given, questions answered & plan of care reviewed with RAMO Oleary.
[2021-08-03] MEDS: POTASSIUM BICARB 20meq eff tab 20 MEQ TABLET.EFF OGT SCH (08:00)
[2021-08-03] MEDS: pantoprazole IV 40 MG in dextrose 5%-water 100 ML IV SCH ×2 (08:53→20:56)
[2021-08-03] MEDS: enoxaparin 40mg/0.4ml syringe SQ SCH ×2 (08:54→20:56)
[2021-08-03] MEDS: piperacillin/tazo 3.375gm/50ml 50 ML IV SCH ×2 (08:57→16:40)
[2021-08-03] MEDS: thiamine inj. 100 MG in normal saline 100ml IV soln 100 ML IV SCH (08:58)
[2021-08-03] MEDS: lactobacillus rhamnosus 10,000 MMU CELLS/CAPSULE OGT SCH ×2 (08:58→20:56)
[2021-08-03] MEDS: docusate sodium 100mg/10ml UD cup OGT SCH ×2 (08:58→20:56)
[2021-08-03] MEDS: folic acid 1mg/0.2ml inj IV SCH (08:58)
[2021-08-03] MEDS: MULTIVIT-MIN/FERROUS GLUCONATE 9 MG/15 ML LIQUID OGT SCH (08:58)
[2021-08-03] MEDS: nicotine 14mg patch - 24hr TD SCH (08:59)
[2021-08-03] MEDS: FENTANYL-0.9 % NACL/PF 100 ML IV PRN ×2 (09:11→13:40)
[2021-08-03] MEDS ORDERED: midazolam 1 mg/ML 2ml injection ONE (09:17)
[2021-08-03] MEDS ORDERED: LIDOcaine 1% (10mg/ml) 2ml vial ONE (09:25)
[2021-08-03] MEDS ORDERED: potassium Cl 20 mEq SR tablet OGT SCH (11:34)
[2021-08-03] MEDS ORDERED: albumin (Human) 5% 250ml 250 ML IV ONE (11:40)
[2021-08-03] MEDS: albumin (Human) 5% 250ml 250 ML IV SCH ×2 (11:55→12:40)
[2021-08-03] MEDS: dextrose 5%-normal saline 1,000 ML IV SCH ×2 (11:59→21:40)
--- NOTE | 2021-08-03 13:19 | NUR ---
F/u 08/03: Pt remains intubated tolerating TF at goal however now off following GRV 610-550ml last night/this AM per EMR. Pt small BM 08/02 however no significant BM since 07/23 this admit. Receiving routine senna and colace w/ enema to happen today per MD at rounds. Pt serum Na 125 this AM receiving D10 at 50ml/hr now to change to D5/NS per MD. Will monitor for TF tolerance and additional nutrition support needs this admit. Addendum: 08/03/21 at [address] Amended: Links added.
[2021-08-03] MEDS: magnesium 2GM in 50ml NS 50 ML IV PRN (14:17)
[2021-08-03] MEDS ORDERED: fentaNYL/NS/PF 2,500 mcg/250mL 250 ML IV PRN (14:51)
[2021-08-03] MEDS: sennosides 8.6mg tablet OGT SCH (20:56)
[2021-08-04] VITALS (26 sets, daily range): BP systolic 84–135; BP diastolic 46–70
[2021-08-04] MEDS: mineral oil/petrolatum ophthal oint EACHEYE SCH ×4 (02:00→20:29)
[2021-08-04] MEDS: dexmedetomidin/NS 400mcg/100ml 100 ML IV SCH (02:19)
[2021-08-04 02:54] LABS: BASOPHILS % (AUTO) 0.3 % (0-1); EOSINOPHILS # (AUTO) 0.2 X10'3 (0-0.9); EOSINOPHILS % (AUTO) 1.7 % (0-6); LYMPHOCYTES # (AUTO) 0.6 X10'3 (1.1-4.8); LYMPHOCYTES % (AUTO) 6.5 % (21-51); MEAN CORPUSCULAR HEMOGLOBIN 31.6 PG (27.0-31.0); MEAN CORPUSCULAR VOLUME 90.3 FL (78-98); MEAN PLATELET VOLUME 8.7 FL (7.4-10.4); MONOCYTES # (AUTO) 0.4 X10'3 (0-0.9); MONOCYTES % (AUTO) 4.2 % (2-12); NEUTROPHILS # (AUTO) 8.4 X10'3 (1.8-7.7); NEUTROPHILS % (AUTO) 87.3 % (42-75); PLATELET COUNT 272 X10'3 (140-440); RED BLOOD COUNT 2.07 X10'6 (4.20-5.60); RED CELL DISTRIBUTION WIDTH 14.8 % (11.5-14.5); WHITE BLOOD COUNT 9.6 X10'3 (4.5-11.0)
[2021-08-04 03:08] LABS: ABG BASE EXCESS 1.1 mmol/L (-2.0-2.0); ABG HCO3 23.8 mmol/L (22.0-26.0); ABG PCO2 (T) 27.9 mmHg (32.0-45.0); FMetHb 0.2 % (0.0-1.5); FO2Hb 98.8 % (94-97); PATIENT TEMPERATURE 35.6; PEEP 5 cm H2O; RESPIRATORY RATE 16 b/min; TIDAL VOLUME 350 mL; TOTAL HEMOGLOBIN 7.1 G/dl (12.0-16.0)
[2021-08-04 03:09] LABS: ALANINE AMINOTRANSFERASE 36 U/L (12-78); ALBUMIN 1.4 G/DL (3.4-5.0); ALBUMIN/GLOBULIN RATIO 0.5 (1.1-1.5); ALKALINE PHOSPHATASE 125 IU/L (46-116); ANION GAP 6 (8-16); ASPARTATE AMINO TRANSFERASE 38 U/L (10-37); BILIRUBIN,TOTAL 1.4 MG/DL (0.1-1.0); BLOOD UREA NITROGEN 20 MG/DL (7-18); CALCIUM 7.1 MG/DL (8.5-10.1); CHLORIDE 96 MMOL/L (99-107); CREATININE 0.87 MG/DL (0.40-0.90); GLUCOSE 164 MG/DL (70-104); PHOSPHORUS 2.4 MG/DL (2.3-4.5); SODIUM 127 MMOL/L (135-145); TOTAL CARBON DIOXIDE 24.7 MMOL/L (24-32); TOTAL PROTEIN 4.4 G/DL (6.4-8.2); eGFR 66 ML/MIN
[2021-08-04 03:15] LABS: HEMOGLOBIN 6.5 g/dl (12.0-16.0)
[2021-08-04 03:16] LABS: HEMATOCRIT 18.7 % (35.0-45.0)
[2021-08-04 03:19] LABS: POTASSIUM 2.9 MMOL/L (3.5-5.1)
[2021-08-04] MEDS: potassium Cl 20mEq/100mL bag 100 ML IV PRN ×4 (03:42→07:29)
--- NOTE | 2021-08-04 03:50 | NUR ---
Dr. Garces notified of H & H of 18.7/5.5, new ordered received to transfuse 1 unit of PRBC's.
[2021-08-04] MEDS: midazolam 100mg in NS 100ml 100 ML IV PRN (06:29)
[2021-08-04] MEDS: folic acid 1mg/0.2ml inj IV SCH (08:00)
[2021-08-04] MEDS: enoxaparin 40mg/0.4ml syringe SQ SCH (08:00)
[2021-08-04] MEDS: potassium Cl 20 mEq SR tablet OGT SCH (08:00)
[2021-08-04 10:37] LABS: BASOPHILS % (AUTO) 0.4 % (0-1); EOSINOPHILS # (AUTO) 0.1 X10'3 (0-0.9); EOSINOPHILS % (AUTO) 1.2 % (0-6); HEMATOCRIT 25.4 % (35.0-45.0); HEMOGLOBIN 8.6 g/dl (12.0-16.0); LYMPHOCYTES # (AUTO) 0.5 X10'3 (1.1-4.8); LYMPHOCYTES % (AUTO) 4.3 % (21-51); MEAN CORPUSCULAR HEMOGLOBIN 29.9 PG (27.0-31.0); MEAN CORPUSCULAR HGB CONC 33.7 g/dL (33.0-36.5); MEAN CORPUSCULAR VOLUME 88.6 FL (78-98); MEAN PLATELET VOLUME 8.5 FL (7.4-10.4); MONOCYTES # (AUTO) 0.6 X10'3 (0-0.9); MONOCYTES % (AUTO) 5.2 % (2-12); NEUTROPHILS % (AUTO) 88.9 % (42-75); PLATELET COUNT 272 X10'3 (140-440); RED BLOOD COUNT 2.87 X10'6 (4.20-5.60); RED CELL DISTRIBUTION WIDTH 16.3 % (11.5-14.5); WHITE BLOOD COUNT 11.2 X10'3 (4.5-11.0)
[2021-08-04 10:51] LABS: PARTIAL THROMBOPLASTIN TIME 35 SECONDS (22-32)
[2021-08-04 10:53] LABS: ALANINE AMINOTRANSFERASE 47 U/L (12-78); ALBUMIN 1.4 G/DL (3.4-5.0); ALBUMIN/GLOBULIN RATIO 0.5 (1.1-1.5); ALKALINE PHOSPHATASE 161 IU/L (46-116); ANION GAP 4 (8-16); ASPARTATE AMINO TRANSFERASE 64 U/L (10-37); BILIRUBIN,TOTAL 1.2 MG/DL (0.1-1.0); BLOOD UREA NITROGEN 21 MG/DL (7-18); BUN/CREATININE RATIO 28.4 (6.6-38.0); CALCIUM 6.7 MG/DL (8.5-10.1); CHLORIDE 100 MMOL/L (99-107); CREATININE 0.74 MG/DL (0.40-0.90); GLUCOSE 124 MG/DL (70-104); POTASSIUM 5.1 MMOL/L (3.5-5.1); SODIUM 130 MMOL/L (135-145); TOTAL PROTEIN 4.5 G/DL (6.4-8.2); eGFR 80 ML/MIN
[2021-08-04] MEDS: lactobacillus rhamnosus 10,000 MMU CELLS/CAPSULE OGT SCH ×2 (11:02→20:12)
[2021-08-04] MEDS: MULTIVIT-MIN/FERROUS GLUCONATE 9 MG/15 ML LIQUID OGT SCH (11:02)
[2021-08-04] MEDS: pantoprazole IV 40 MG in dextrose 5%-water 100 ML IV SCH ×2 (11:02→20:12)
[2021-08-04] MEDS: piperacillin/tazo 3.375gm/50ml 50 ML IV SCH ×3 (11:02→16:58)
[2021-08-04] MEDS: thiamine inj. 100 MG in normal saline 100ml IV soln 100 ML IV SCH (11:02)
[2021-08-04] MEDS: nicotine 14mg patch - 24hr TD SCH (11:03)
[2021-08-04] MEDS: docusate sodium 100mg/10ml UD cup OGT SCH ×2 (11:12→20:12)
[2021-08-04] MEDS: dextrose 5%-normal saline 1,000 ML IV SCH ×2 (11:13→20:13)
[2021-08-04] MEDS ORDERED: normal saline 500ml IV soln 500 ML IV ONE (11:35)
--- NOTE | 2021-08-04 12:58 | NUR ---
Spoke with brother Giovanny regarding PICC line consent, he is not willing to give consent at this time and would first like to speak with the MD. Primary Rn and myself spoke with MD, and let him know that the PICC will not be able to be put in today. Will check tomorrow to see if the line is still needed and if consent is attainable.
[2021-08-04] MEDS: insulin regular, human U-100 3ml vial - multi-dose SQ SCH (14:03)
[2021-08-04] MEDS ORDERED: methylnaltrexone br 12mg/0.6ml inj***SubQ only SQ ONE (20:00)
[2021-08-04] MEDS: sennosides 8.6mg tablet OGT SCH (20:12)
[2021-08-05] VITALS (41 sets, daily range): BP systolic 68–183; BP diastolic 40–86
--- NOTE | 2021-08-05 00:20 | NUR ---
Pt with increased HR 150-160's, atrial fib. Dr. Mason notified. New order received for Amiodarone infusion.
[2021-08-05] MEDS ORDERED: amiodarone 150mg/dext, iso-os 100 ML IV ONE (00:30)
[2021-08-05] MEDS ORDERED: amiodarone/D5 360MG/200ML BAG 200 ML IV ONE (00:32)
[2021-08-05] MEDS: amiodarone/D5 360MG/200ML BAG 200 ML IV SCH ×4 (00:45→18:42)
[2021-08-05] MEDS: midazolam 100mg in NS 100ml 100 ML IV PRN ×3 (00:49→23:35)
[2021-08-05] MEDS: piperacillin/tazo 3.375gm/50ml 50 ML IV SCH ×4 (00:55→23:34)
[2021-08-05] MEDS: mineral oil/petrolatum ophthal oint EACHEYE SCH ×4 (02:00→20:00)
[2021-08-05 02:57] LABS: BASOPHILS % (AUTO) 0 % (0-1); EOSINOPHILS # (AUTO) 0.1 X10'3 (0-0.9); EOSINOPHILS % (AUTO) 1.1 % (0-6); HEMATOCRIT 23.9 % (35.0-45.0); HEMOGLOBIN 8.2 g/dl (12.0-16.0); LYMPHOCYTES # (AUTO) 0.4 X10'3 (1.1-4.8); LYMPHOCYTES % (AUTO) 3.3 % (21-51); MEAN CORPUSCULAR HGB CONC 34.2 g/dL (33.0-36.5); MEAN CORPUSCULAR VOLUME 87.6 FL (78-98); MEAN PLATELET VOLUME 8.2 FL (7.4-10.4); MONOCYTES # (AUTO) 0.6 X10'3 (0-0.9); MONOCYTES % (AUTO) 5.3 % (2-12); NEUTROPHILS # (AUTO) 10.5 X10'3 (1.8-7.7); NEUTROPHILS % (AUTO) 90.3 % (42-75); PLATELET COUNT 325 X10'3 (140-440); RED BLOOD COUNT 2.73 X10'6 (4.20-5.60); RED CELL DISTRIBUTION WIDTH 17.2 % (11.5-14.5); WHITE BLOOD COUNT 11.7 X10'3 (4.5-11.0)
[2021-08-05] MEDS: NORepinephrine 8mg/ 250ml NS 250 ML IV SCH ×2 (03:00→21:10)
[2021-08-05 03:16] LABS: ALANINE AMINOTRANSFERASE 48 U/L (12-78); ALBUMIN 1.2 G/DL (3.4-5.0); ALBUMIN/GLOBULIN RATIO 0.3 (1.1-1.5); ALKALINE PHOSPHATASE 197 IU/L (46-116); ANION GAP 7 (8-16); ASPARTATE AMINO TRANSFERASE 60 U/L (10-37); BILIRUBIN,TOTAL 1.1 MG/DL (0.1-1.0); BLOOD UREA NITROGEN 14 MG/DL (7-18); BUN/CREATININE RATIO 20.6 (6.6-38.0); CALCIUM 7.1 MG/DL (8.5-10.1); CHLORIDE 99 MMOL/L (99-107); CREATININE 0.68 MG/DL (0.40-0.90); GLUCOSE 132 MG/DL (70-104); SODIUM 130 MMOL/L (135-145); TOTAL PROTEIN 4.7 G/DL (6.4-8.2); eGFR 88 ML/MIN
[2021-08-05 03:24] LABS: POTASSIUM 2.9 MMOL/L (3.5-5.1)
[2021-08-05] MEDS: dextrose 5%-normal saline 1,000 ML IV SCH ×3 (03:40→23:40)
[2021-08-05] MEDS: potassium Cl 20mEq/100mL bag 100 ML IV PRN ×4 (04:43→12:06)
[2021-08-05 05:45] LABS: ABG BASE EXCESS -0.3 mmol/L (-2.0-2.0); ABG HCO3 24.1 mmol/L (22.0-26.0); ABG OXYGEN SATURATION 96.9 % (94-97); ABG PCO2 (T) 37.7 mmHg (32.0-45.0); ALLEN'S TEST Modified; FCOHb 0.3 % (0.0-3.9); FMetHb 0.2 % (0.0-1.5); FO2Hb 96.4 % (94-97); PATIENT TEMPERATURE 36.7; PEEP 5 cm H2O; RESPIRATORY RATE 14 b/min; TOTAL HEMOGLOBIN 9.1 G/dl (12.0-16.0)
[2021-08-05 07:20] LABS: MAGNESIUM 1.8 MG/DL (1.5-2.4); PHOSPHORUS 1.9 MG/DL (2.3-4.5)
[2021-08-05] MEDS ORDERED: NORMAL SALINE IPL ONE ×5 (08:00→14:10)
[2021-08-05] MEDS ORDERED: STERILE TALC IPL ONE ×5 (08:00→14:10)
[2021-08-05] MEDS: potassium Cl 20 mEq SR tablet OGT SCH (08:22)
[2021-08-05] MEDS: lactobacillus rhamnosus 10,000 MMU CELLS/CAPSULE OGT SCH ×2 (08:22→21:11)
[2021-08-05] MEDS: docusate sodium 100mg/10ml UD cup OGT SCH ×2 (08:22→21:11)
[2021-08-05] MEDS: MULTIVIT-MIN/FERROUS GLUCONATE 9 MG/15 ML LIQUID OGT SCH (08:22)
[2021-08-05] MEDS: pantoprazole IV 40 MG in dextrose 5%-water 100 ML IV SCH ×2 (08:23→21:11)
[2021-08-05] MEDS: nicotine 14mg patch - 24hr TD SCH (08:23)
[2021-08-05] MEDS: thiamine inj. 100 MG in normal saline 100ml IV soln 100 ML IV SCH (08:23)
[2021-08-05] MEDS: folic acid 1mg/0.2ml inj IV SCH (08:24)
[2021-08-05] MEDS ORDERED: WATER IV ONE ×2 (11:25→12:29)
[2021-08-05] MEDS ORDERED: DEXTROSE 5% IV ONE ×2 (11:25→12:29)
[2021-08-05] MEDS ORDERED: SODIUM PHOSPHATE IV ONE ×2 (11:25→12:29)
--- NOTE | 2021-08-05 11:32 | NUR ---
F/u: Noted serum Na remains low at 130 MMOL/L today, okayed discontinuing water flushes at this time, RN notified. Pt continues receiving D5/NS at 100 mL/hr. Addendum: 08/05/21 at [address] Amended: Links added.
[2021-08-05] MEDS: dexmedetomidin/NS 400mcg/100ml 100 ML IV SCH (16:29)
[2021-08-05] MEDS: sennosides 8.6mg tablet OGT SCH (21:11)
[2021-08-05] MEDS: insulin regular, human U-100 3ml vial - multi-dose SQ SCH (21:56)
[2021-08-06] VITALS (24 sets, daily range): BP systolic 114–153; BP diastolic 48–69
[2021-08-06] MEDS: amiodarone/D5 360MG/200ML BAG 200 ML IV SCH ×5 (00:46→23:18)
[2021-08-06 03:04] LABS: BASOPHILS % (AUTO) 0.4 % (0-1); EOSINOPHILS # (AUTO) 0.2 X10'3 (0-0.9); EOSINOPHILS % (AUTO) 1.4 % (0-6); HEMATOCRIT 22.3 % (35.0-45.0); HEMOGLOBIN 7.5 g/dl (12.0-16.0); LYMPHOCYTES # (AUTO) 0.4 X10'3 (1.1-4.8); LYMPHOCYTES % (AUTO) 3.4 % (21-51); MEAN CORPUSCULAR HEMOGLOBIN 29.8 PG (27.0-31.0); MEAN CORPUSCULAR HGB CONC 33.5 g/dL (33.0-36.5); MEAN CORPUSCULAR VOLUME 89.1 FL (78-98); MEAN PLATELET VOLUME 7.8 FL (7.4-10.4); MONOCYTES # (AUTO) 0.5 X10'3 (0-0.9); MONOCYTES % (AUTO) 4.6 % (2-12); NEUTROPHILS % (AUTO) 90.2 % (42-75); PLATELET COUNT 336 X10'3 (140-440); RED BLOOD COUNT 2.51 X10'6 (4.20-5.60); RED CELL DISTRIBUTION WIDTH 17.4 % (11.5-14.5); WHITE BLOOD COUNT 11.1 X10'3 (4.5-11.0)
[2021-08-06 03:19] LABS: ALANINE AMINOTRANSFERASE 41 U/L (12-78); ALBUMIN/GLOBULIN RATIO 0.3 (1.1-1.5); ALKALINE PHOSPHATASE 157 IU/L (46-116); ANION GAP 9 (8-16); ASPARTATE AMINO TRANSFERASE 42 U/L (10-37); BILIRUBIN,TOTAL 0.9 MG/DL (0.1-1.0); BLOOD UREA NITROGEN 10 MG/DL (7-18); BUN/CREATININE RATIO 14.7 (6.6-38.0); CALCIUM 6.9 MG/DL (8.5-10.1); CHLORIDE 104 MMOL/L (99-107); CREATININE 0.68 MG/DL (0.40-0.90); GLUCOSE 101 MG/DL (70-104); POTASSIUM 3.1 MMOL/L (3.5-5.1); SODIUM 137 MMOL/L (135-145); TOTAL CARBON DIOXIDE 23.9 MMOL/L (24-32); TOTAL PROTEIN 4.4 G/DL (6.4-8.2); eGFR 88 ML/MIN
[2021-08-06] MEDS: insulin regular, human U-100 3ml vial - multi-dose SQ SCH ×3 (03:40→15:22)
[2021-08-06 04:28] LABS: ABG BASE EXCESS -2.1 mmol/L (-2.0-2.0); ABG HCO3 23.3 mmol/L (22.0-26.0); ABG OXYGEN SATURATION 93.6 % (94-97); ABG PCO2 (T) 43.5 mmHg (32.0-45.0); ABG PO2 (T) 71.1 mmHg (75.0-100.0); FCOHb 0.3 % (0.0-3.9); FMetHb 0.3 % (0.0-1.5); PATIENT TEMPERATURE 37.4; PEEP 5 cm H2O; RESPIRATORY RATE 14 b/min; TIDAL VOLUME 350 mL; TOTAL HEMOGLOBIN 7.2 G/dl (12.0-16.0)
--- NOTE | 2021-08-06 06:30 | NUR ---
Patient in room CICU 2014. I have received report from and had the opportunity to ask questions and assume patient care.
[2021-08-06] MEDS: mineral oil/petrolatum ophthal oint EACHEYE SCH ×3 (08:00→20:07)
[2021-08-06] MEDS: folic acid 1mg/0.2ml inj IV SCH (08:00)
[2021-08-06] MEDS: thiamine inj. 100 MG in normal saline 100ml IV soln 100 ML IV SCH (08:00)
[2021-08-06] MEDS: piperacillin/tazo 3.375gm/50ml 50 ML IV SCH ×3 (08:00→23:17)
[2021-08-06] MEDS: potassium Cl 20 mEq SR tablet OGT SCH (08:00)
[2021-08-06] MEDS: pantoprazole IV 40 MG in dextrose 5%-water 100 ML IV SCH ×2 (08:00→20:07)
--- NOTE | 2021-08-06 08:00 | NUR ---
pt sedated, opens eyes spont to care, nothing to commands. rt lasix labs started. k replacement given. update to md. jungs 92% on 65% Addendum: 08/06/21 at 1402 by Marilu Hernandez RN wrong pt.
[2021-08-06 08:38] LABS: MAGNESIUM 1.8 MG/DL (1.5-2.4); PHOSPHORUS 3.4 MG/DL (2.3-4.5)
[2021-08-06] MEDS: dextrose 5%-normal saline 1,000 ML IV SCH ×2 (09:40→20:06)
[2021-08-06] MEDS: docusate sodium 100mg/10ml UD cup OGT SCH ×2 (09:54→20:07)
[2021-08-06] MEDS: potassium Cl 20mEq/100mL bag 100 ML IV PRN ×2 (09:54→11:10)
[2021-08-06] MEDS: nicotine 14mg patch - 24hr TD SCH (09:55)
[2021-08-06] MEDS: lactobacillus rhamnosus 10,000 MMU CELLS/CAPSULE OGT SCH ×2 (09:55→20:07)
[2021-08-06] MEDS: MULTIVIT-MIN/FERROUS GLUCONATE 9 MG/15 ML LIQUID OGT SCH (09:55)
--- NOTE | 2021-08-06 10:00 | NUR ---
pt opens eyes occ. hr to 160- afib- md aware- amiodarone resumed- hr down. call to brother by picc nurse- doesnt want picc line, wants pt to be comfort care. dr saucedo called and spoke with him. dr suh made aware- will call him with update.
--- NOTE | 2021-08-06 13:00 | NUR ---
k replaced this am. spont attempted several times after all sedation off, but pt apneic. mouths words appropriately.
--- NOTE | 2021-08-06 13:33 | NUR ---
Reassessment: Pt remains intubated and tolerating TF at goal rate with GRV WNL. Water flushes were held 08/[address] sweeper operatorhead teller, serum Na WNL today. Will continue to monitor serum Na and need to adjust recommendations. LBM 08/05, receiving routine bowel care. Will continue to follow. Recommendations: 1. Continuous TF via OGT using Vital AF with 50 mL/hr goal rate to provide 1200 mL total volume/day, 1440 kcal, 90 g protein, and 973 mL water 2. Additional 75 mL water flush Q4H; monitor serum Na and need to adjust 3. Prealbumin q Tuesday/ 4. Daily scaled weights 5. Continue routine Thiamine, Folic acid, and MVI for EtOH hx 6. Routine bowel care; previous 11 days constipation 7. BSS with ST following extubation, recommend regular diet Addendum: 08/06/21 at [address] Amended: Links added.
[2021-08-06] MEDS: dexmedetomidin/NS 400mcg/100ml 100 ML IV SCH (16:32)
--- NOTE | 2021-08-06 17:30 | NUR ---
knees, hands reain cool and mottled- rt foot warmer than left
--- NOTE | 2021-08-06 18:00 | NUR ---
pt oozing around edematous areas- kassidy rt chest and rt groin- changed as needed. upon change- pt with tf in mouth- to sx-600 cc from belly. tf stopped. dr Bray aware pt more awake off sedation now- liquid brown bm
[2021-08-06] MEDS: sennosides 8.6mg tablet OGT SCH (20:07)
[2021-08-06] MEDS: dextrose 50%-water 50ml dispensing syringe IV PRN (20:10)
[2021-08-07] VITALS (24 sets, daily range): BP systolic 84–177; BP diastolic 36–80
[2021-08-07] MEDS: NORepinephrine 8mg/ 250ml NS 250 ML IV SCH (02:21)
[2021-08-07] MEDS: mineral oil/petrolatum ophthal oint EACHEYE SCH ×4 (02:21→19:21)
[2021-08-07 03:45] LABS: BASOPHILS % (AUTO) 0.2 % (0-1); EOSINOPHILS # (AUTO) 0.1 X10'3 (0-0.9); HEMATOCRIT 22.4 % (35.0-45.0); HEMOGLOBIN 7.5 g/dl (12.0-16.0); LYMPHOCYTES # (AUTO) 0.2 X10'3 (1.1-4.8); LYMPHOCYTES % (AUTO) 1.8 % (21-51); MEAN CORPUSCULAR HGB CONC 33.4 g/dL (33.0-36.5); MEAN CORPUSCULAR VOLUME 89.8 FL (78-98); MEAN PLATELET VOLUME 7.8 FL (7.4-10.4); MONOCYTES # (AUTO) 0.5 X10'3 (0-0.9); MONOCYTES % (AUTO) 4.3 % (2-12); NEUTROPHILS # (AUTO) 11.1 X10'3 (1.8-7.7); NEUTROPHILS % (AUTO) 92.7 % (42-75); PLATELET COUNT 364 X10'3 (140-440); RED BLOOD COUNT 2.49 X10'6 (4.20-5.60); RED CELL DISTRIBUTION WIDTH 17.7 % (11.5-14.5)
[2021-08-07 03:57] LABS: ALANINE AMINOTRANSFERASE 47 U/L (12-78); ALBUMIN/GLOBULIN RATIO 0.3 (1.1-1.5); ALKALINE PHOSPHATASE 186 IU/L (46-116); ANION GAP 8 (8-16); ASPARTATE AMINO TRANSFERASE 52 U/L (10-37); BILIRUBIN,TOTAL 1.2 MG/DL (0.1-1.0); BLOOD UREA NITROGEN 10 MG/DL (7-18); BUN/CREATININE RATIO 13.5 (6.6-38.0); CALCIUM 7.6 MG/DL (8.5-10.1); CHLORIDE 105 MMOL/L (99-107); CREATININE 0.74 MG/DL (0.40-0.90); GLUCOSE 86 MG/DL (70-104); MAGNESIUM 1.6 MG/DL (1.5-2.4); PHOSPHORUS 2.7 MG/DL (2.3-4.5); POTASSIUM 3.2 MMOL/L (3.5-5.1); SODIUM 138 MMOL/L (135-145); TOTAL CARBON DIOXIDE 25.5 MMOL/L (24-32); TOTAL PROTEIN 4.7 G/DL (6.4-8.2); eGFR 80 ML/MIN
[2021-08-07 04:04] LABS: ABG BASE EXCESS -0.6 mmol/L (-2.0-2.0); ABG HCO3 24.5 mmol/L (22.0-26.0); ABG OXYGEN SATURATION 96.6 % (94-97); ABG PCO2 (T) 42.5 mmHg (32.0-45.0); FCOHb 0.5 % (0.0-3.9); FMetHb 0.2 % (0.0-1.5); FO2Hb 95.9 % (94-97); PATIENT TEMPERATURE 37.1; PEEP 5 cm H2O; TOTAL HEMOGLOBIN 8.4 G/dl (12.0-16.0)
[2021-08-07] MEDS: potassium Cl 20mEq/100mL bag 100 ML IV PRN (08:22)
[2021-08-07] MEDS: pantoprazole IV 40 MG in normal saline 100ml IV soln 100 ML IV SCH ×2 (08:22→19:25)
[2021-08-07] MEDS: docusate sodium 100mg/10ml UD cup OGT SCH ×2 (08:23→19:20)
[2021-08-07] MEDS: thiamine inj. 100 MG in normal saline 100ml IV soln 100 ML IV SCH (08:25)
[2021-08-07] MEDS: lactobacillus rhamnosus 10,000 MMU CELLS/CAPSULE OGT SCH ×2 (08:25→19:20)
[2021-08-07] MEDS: potassium Cl 20 mEq SR tablet OGT SCH (08:25)
[2021-08-07] MEDS: MULTIVIT-MIN/FERROUS GLUCONATE 9 MG/15 ML LIQUID OGT SCH (08:26)
[2021-08-07] MEDS: nicotine 14mg patch - 24hr TD SCH (08:29)
[2021-08-07] MEDS: piperacillin/tazo 3.375gm/50ml 50 ML IV SCH ×2 (08:29→16:13)
[2021-08-07] MEDS: dextrose 5%-normal saline 1,000 ML IV SCH ×3 (08:40→19:26)
[2021-08-07] MEDS: amiodarone/D5 360MG/200ML BAG 200 ML IV SCH ×3 (10:00→22:37)
[2021-08-07] MEDS: folic acid 1mg/0.2ml inj IV SCH (11:00)
[2021-08-07] MEDS ORDERED: dexamethasone 4mg tablet PO SCH (14:00)
[2021-08-07] MEDS: dexamethasone 4mg/ml inj IV SCH ×3 (16:13→22:38)
[2021-08-07] MEDS: sennosides 8.6mg tablet OGT SCH (19:21)
--- NOTE | 2021-08-07 20:00 | NUR ---
Spoke with pt's family over the phone. Family wants patient to be placed on comfort care if she does not tolerate being off vent.
[2021-08-08] VITALS: BP 146/62
--- NOTE | 2021-08-08 00:15 | NUR ---
RN IS TO DOCUMENT YES TO ALL APPLICABLE AREAS Pronouncement of : 11 1. Time Physician Notified: 19 2. Date of :08/08/21 3. Time of : 11 4. DNR/Withdraw life support documented: Y 5. Monitor strip has been placed on chart: Y 6. Assessment process is of one-minute duration and includes following criteria: a) Patient is unresponsive to all stimuli: Y b) Pupils fixed and non-reactive: Y c) Auscultation of precordium reveals absence of heart tones: Y d) Auscultation of lungs reveals absence of breath sounds: Y e) Absence of blood pressure / all vital signs: Y f) QRS complexes are not present on monitor / EKG strip: Y g) Pacer spikes without capture: n/a 4. Comments: [id number], Rosalie notified. Arrangements made for Bria
== END 2021-08-08 00:12 | DRG 222 ==
LOC: ER 23:08 → ICU 2S 07-24 08:37 → CICU 2S 07-25 03:06
PROVIDERS: ADMIT Surgery; ATTEND Surgery
PROC: 5A1955Z Respiratory Ventilation, Greater than 96 Consecutive Hours (ICD-10-PCS; 2021-07-24)
PROC: 5A2204Z Restoration of Cardiac Rhythm, Single (ICD-10-PCS; 2021-07-24)
PROC: 06HY33Z Insertion of Infusion Device into Lower Vein, Percutaneous Approach (ICD-10-PCS; 2021-07-24)
PROC: 04HY32Z Insertion of Monitoring Device into Lower Artery, Percutaneous Approach (ICD-10-PCS; 2021-07-24)
PROC: 0W9930Z Drainage of Right Pleural Cavity with Drainage Device, Percutaneous Approach (ICD-10-PCS; 2021-07-24)
PROC: 0BH17EZ Insertion of Endotracheal Airway into Trachea, Via Natural or Artificial Opening (ICD-10-PCS; 2021-07-24)
PROC: BW251ZZ Computerized Tomography (CT Scan) of Chest, Abdomen and Pelvis using Low Osmolar Contrast (ICD-10-PCS; 2021-07-24)
PROC: 0DU707Z Supplement Stomach, Pylorus with Autologous Tissue Substitute, Open Approach (ICD-10-PCS; principal; 2021-07-24 05:50)
PROC: 0W9930Z Drainage of Right Pleural Cavity with Drainage Device, Percutaneous Approach (ICD-10-PCS; 2021-07-29)
PROC: 30233N1 Transfusion of Nonautologous Red Blood Cells into Peripheral Vein, Percutaneous Approach (ICD-10-PCS; 2021-07-31)
DX: K25.5 Chronic or unspecified gastric ulcer with perforation (principal); I26.92 Saddle embolus of pulmonary artery without acute cor pulmonale; J96.21 Acute and chronic respiratory failure with hypoxia; R57.9 Shock, unspecified; R18.8 Other ascites; E87.2 Acidosis; E46 Unspecified protein-calorie malnutrition; J95.811 Postprocedural pneumothorax; J96.22 Acute and chronic respiratory failure with hypercapnia; Z51.5 Encounter for palliative care; Z66 Do not resuscitate; Z20.822 Contact with and (suspected) exposure to COVID-19; I48.92 Unspecified atrial flutter; T79.7XXA Traumatic subcutaneous emphysema, initial encounter; Y92.230 Patient room in hospital as the place of occurrence of the external cause; F10.20 Alcohol dependence, uncomplicated; J44.9 Chronic obstructive pulmonary disease, unspecified; J90 Pleural effusion, not elsewhere classified; N17.9 Acute kidney failure, unspecified; Z60.2 Problems related to living alone; I48.91 Unspecified atrial fibrillation; F17.200 Nicotine dependence, unspecified, uncomplicated; Z85.89 Personal history of malignant neoplasm of other organs and systems; Z90.49 Acquired absence of other specified parts of digestive tract; Z68.1 Body mass index [BMI] 19.9 or less, adult; Z78.1 Physical restraint status; Y93.89 Activity, other specified; Y99.8 Other external cause status
CPT/HCPCS: 31500; 32556; 32557; 36415; 36430; 36556; 36600; 70450; 71045; 71250; 71260; 74177; 80048; 80053; 81001; 81025; 82803; 82948; 83036; 83605; 83690; 83735; 83880; 84100; 84132; 84134; 84145; 84478; 85007; 85018; 85025; 85027; 85730; 86147; 86885; 86900; 86901; 86920; 86922; 87040; 87088; 87502; 87503; 87635; 93005; 93922; 94002; 94003; 94640; 94760; 94799; 99291; 99292; A4618; A6449; A7000; C9113; C9803; G0378; J0153; J0171; J0282; J0461; J0696; J1100; J1650; J1815; J1940; J2212; J2250; J2270; J2405; J2543; J2704; J3010; J3411; J3475; J3480; J3490; J7030; J7040; J7042; J7060; J7070; J7120; P9016; P9045; Q9967